=== PATIENT | male | born 1955 | race Caucasian/White ===

== ENCOUNTER 2017-11-04 12:47 | Inpatient (IN) ==
[2017-11-04 13:37] LABS: Bilirubin,Urine Negative (Negative); Blood,Urine Negative (Negative); Clarity,Urine Clear (Clear); Color,Urine Yellow (Yellow); Glucose,Urine (UA) Normal (Normal); Ketones,Urine Negative (Negative); Leukocyte Esterase,Urine Trace (Negative); Nitrite,Urine Negative (Negative); Protein,Urine Trace mg/dL (Neg-Trace); Specific Gravity,Urine 1.013 (1.010-1.025); Urobilinogen,Urine Normal (Normal)
[2017-11-04 13:40] LABS: Bacteria,Urine None Seen per hpf (None-Few); Hyaline Casts,Urine None Seen per lpf (None-Few); RBC,Urine 0-3 per hpf (0-3); Squamous Epithelial Cell,Urine Moderate per lpf (None-Few)
[2017-11-04 14:30] LABS: Basophils % 0.2 %; Eosinophils % 0.6 %; Hematocrit 28.8 % (37.5-50.1); Hemoglobin 9.3 g/dL (12.9-16.9); Lymphocytes # 0.6 K/mcL (0.6-4.6); Lymphocytes % 8.9 %; Mean Corpuscular HGB Conc 32.3 g/dL (31.6-35.5); Mean Corpuscular Volume 83.5 fL (83.0-100.0); Mean Platelet Volume 8.9 fL (9.4-12.4); Monocytes # 0.3 K/mcL (0.0-1.3); Monocytes % 5.1 %; Neutrophils # 5.3 K/mcL (1.6-8.9); Platelet Count 269 K/mcL (140-400); Red Blood Count 3.45 M/mcL (4.19-5.50); Red Cell Distribution Width 13.4 % (11.5-14.5); Segmented Neutrophils % 84.2 %
--- NOTE | 2017-11-04 14:38 | Emergency Department Note ---
Disposition Clinical Impression: Acute kidney injury, Hyperglycemia Disposition: Admitted As Inpatient Condition: Good [facility]errals: [facility] [Primary Care Provider[facility] - Forms: ED Satisfaction Letter, Work/School Release General Adult HPI - General Chief complaint: ED General Medical Stated complaint: KIDNEY FAILURE Time Seen by Provider: 11/04/17 14:09 Source: patient Mode of arrival: private vehicle Limitations: no limitations Nursing Notes Reviewed: Yes Vital Signs Reviewed: Yes - History of Present Illness HPI Narrative: 62-year-old male presents to the ER with a chief complaint of renal failure. The patient states that he had routine labs 2 days ago at the [facility]. He was called from normal results and went today to see a sanitation truck driver here. He states he was sent from Dr. Barraza's office for admission for kidney failure. He denies a prior history of kidney issues in the past. No chest pain shortness of breath or abdominal pain. No dysuria or hematuria. 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 Patient has no other complaints at this time. Pt Subjective Complaint: Kidney failure Onset (ago): day(s) Radiation: non-radiation Pain Scale: 0 Improves with: nothing Worsens with: nothing Associated symptoms: Reports: denies other symptoms Treatments Prior to Arrival: none - Related Data Home Medications Medication Instructions Recorded Confirmed Cilostazol 50 mg PO BID 01/18/17 01/18/17 Clopidogrel [Plavix] 75 mg PO DAILY 01/18/17 01/18/17 Gabapentin [Neurontin] 300 mg PO TID 01/18/17 01/18/17 Metoprolol [Lopressor] 25 mg PO BID 01/18/17 01/18/17 Simvastatin [Zocor] 40 mg PO HS 01/18/17 01/18/17 Tamsulosin [Flomax] 0.4 mg PO DAILY 01/18/17 01/18/17 Previous Rx's Medication Instructions Recorded HYDROcodone/Acet 5/325 mg [[place] 2 tab PO Q4H PRN #16 tablet 01/18/17 5-325 mg] cephALEXin [Keflex] 500 mg PO BID #14 capsule 01/18/17 Allergies Allergy/AdvReac Type Severity Reaction Status Date / Time metformin AdvReac Diarrhea Verified 11/04/17 13:14 All systems ED: reviewed and negative except as stated. Constitutional: Denies: fever Cardiovascular: Denies: chest pain Respiratory: Denies: dyspnea Gastrointestinal: Denies: abdominal pain, nausea, vomiting Genitourinary: Denies: dysuria, hematuria Past Medical History - Past Medical History Attestation: Yes The following information was validated with the patient. Source: patient Medical history: Reports: CVA, diabetes, hypertension, myocardial infarction, renal disease Psychiatric history: Reports: no psych history - Social History Smoking Status: Former smoker Smokeless Tobacco Status: No Alcohol use: Reports: none Drug use: Reports: none Physical Exam - General Limitations: no limitations General appearance: alert, in no apparent distress - Head Head exam: atraumatic, normocephalic - Eye Eye exam: Present: normal appearance - ENT ENT exam: normal exam - Neck Neck exam: Present: normal inspection, full ROM - Chest Chest inspection: Present: normal inspection, symmetric chest wall rise - Respiratory Respiratory exam: Present: normal lung sounds bilaterally - Cardiovascular Cardiovascular exam: Present: regular rate, normal rhythm, normal heart sounds - Abdominal Exam Abdominal exam: Present: soft, Non-Tender. Absent: tenderness - Extremities Exam Extremities exam: Present: normal inspection, full ROM - Expanded Upper Extremity Exam Shoulder exam: Present: normal inspection, full ROM Arm exam: Present: normal inspection, full ROM Elbow exam: Present: normal inspection, full ROM Forearm/Wrist exam: Present: normal inspection, full ROM Hand exam: Present: normal inspection, full ROM - Expanded Lower Extremity Exam Hip/Pelvis exam: Present: normal inspection, full ROM Upper leg exam: Present: normal inspection, full ROM Knee exam: Present: normal inspection, full ROM Lower leg exam: Present: normal inspection, full ROM Ankle exam: Present: normal inspection, full ROM Foot/toe exam: Present: normal inspection, full ROM - Skin Skin exam: Present: warm, dry Course Course Narrative: Patient seen and examined. Vital signs reviewed. We will check baseline labs and it made for IV hydration. Vital Signs Temperature 98.5 F 11/04/17 13:10 Pulse Rate 86 11/04/17 13:10 Respiratory Rate 16 11/04/17 13:10 Blood Pressure 123/71 11/04/17 13:10 O2 Sat by Pulse Oximetry 98 11/04/17 13:10 Temperature 98.5 F 11/04/17 13:10 Pulse Rate 86 11/04/17 13:10 Respiratory Rate 16 11/04/17 13:10 Blood Pressure 123/71 11/04/17 13:10 O2 Sat by Pulse Oximetry 98 11/04/17 13:10 Oxygen Delivery Oxygen Delivery Room Air Medical Decision Making - MDM Narrative Medical decision making narrative: 62-year-old male presents to the ER due to lab abnormalities. Noted to have an acute kidney injury 2 days ago on incidental labs. Feosol nephrology today who sent him in for evaluation. Creatinine today of 2.9. Electrolytes normal. Patient given IV fluids. Admitted to the hospitalist service. - Lab Data Lab results reviewed: Yes I reviewed the patient's lab results. Result diagrams: 11/04/17 14:15 11/04/17 14:15 Lab Results 11/04/17 11/04/17 11/04/17 Range/Units 13:30 14:15 14:15 WBC 6.3 (4.3-11.1) K/mcL RBC 3.45 L (4.19-5.50) M/mcL Hgb 9.3 L (12.9-16.9) g/dL Hct 28.8 L (37.5-50.1) % MCV 83.5 (83.0-100.0) fL MCH 27.0 L (28.0-33.3) pg MCHC 32.3 (31.6-35.5) g/dL RDW 13.4 (11.5-14.5) % Plt Count 269 (140-400) K/mcL MPV 8.9 L (9.4-12.4) fL Immature Gran % 1.0 (0-4) % Seg Neutrophils % 84.2 % Lymphocytes % 8.9 % Monocytes % 5.1 % Eosinophils % 0.6 % Basophils % 0.2 % Neutrophils # 5.3 (1.6-8.9) K/mcL Lymphocytes # 0.6 (0.6-4.6) K/mcL Monocytes # 0.3 (0.0-1.3) K/mcL Eosinophils # 0.0 (0.0-0.6) K/mcL Basophils # 0.0 (0.0-0.2) K/mcL Sodium 140 (136-145) mEq/L Potassium 4.4 (3.5-5.1) mEq/L Chloride 107 (98-107) mEq/L Carbon Dioxide 25 (23-29) mEq/L BUN 40 H (8-23) mg/dL Creatinine 2.93 H (0.70-1.30) mg/dL Est GFR ( Amer) 26 L (> 60) Est GFR (Non-Af Amer) 22 L (> 60) BUN/Creatinine Ratio 14 (6-26) Glucose 206 H (70-105) mg/dL Calculated Osmolality 306 H (280-300) Calcium 9.5 (8.6-10.3) mg/dL Phosphorus (2.7-4.5) mg/dL Magnesium (1.6-2.6) mg/dL Urine Color Yellow (Yellow) Urine Clarity Clear (Clear) Urine pH 6.0 (5.0-8.0) pH Units Ur Specific [place] 1.013 (1.010-1.025) Urine Protein Trace (Neg-Trace) mg/dL Urine Glucose (UA) Normal (Normal) mg/dL Urine Ketones Negative (Negative) mg/dL Urine Blood Negative (Negative) Urine Nitrite Negative (Negative) Urine Bilirubin Negative (Negative) Urine Urobilinogen Normal (Normal) mg/dL Ur Leukocyte Esterase Trace H (Negative) Urine Microscopic RBC 0-3 (0-3) per hpf Urine Microscopic WBC 3-5 H (0-3) per hpf Ur Squamous Epith Cells Moderate H (None-Few) per lpf Urine Bacteria None Seen (None-Few) per hpf Hyaline Casts None Seen (None-Few) per lpf Ur Culture Indicated? YES A (NO) 11/04/17 Range/Units 14:17 WBC (4.3-11.1) K/mcL RBC (4.19-5.50) M/mcL Hgb (12.9-16.9) g/dL Hct (37.5-50.1) % MCV (83.0-100.0) fL MCH (28.0-33.3) pg MCHC (31.6-35.5) g/dL RDW (11.5-14.5) % Plt Count (140-400) K/mcL MPV (9.4-12.4) fL Immature Gran % (0-4) % Seg Neutrophils % % Lymphocytes % % Monocytes % % Eosinophils % % Basophils % % Neutrophils # (1.6-8.9) K/mcL Lymphocytes # (0.6-4.6) K/mcL Monocytes # (0.0-1.3) K/mcL Eosinophils # (0.0-0.6) K/mcL Basophils # (0.0-0.2) K/mcL Sodium (136-145) mEq/L Potassium (3.5-5.1) mEq/L Chloride (98-107) mEq/L Carbon Dioxide (23-29) mEq/L BUN (8-23) mg/dL Creatinine (0.70-1.30) mg/dL Est GFR ( Amer) (> 60) Est GFR (Non-Af Amer) (> 60) BUN/Creatinine Ratio (6-26) Glucose (70-105) mg/dL Calculated Osmolality (280-300) Calcium (8.6-10.3) mg/dL Phosphorus 2.9 (2.7-4.5) mg/dL Magnesium 1.6 (1.6-2.6) mg/dL Urine Color (Yellow) Urine Clarity (Clear) Urine pH (5.0-8.0) pH Units Ur Specific [place] (1.010-1.025) Urine Protein (Neg-Trace) mg/dL Urine Glucose (UA) (Normal) mg/dL Urine Ketones (Negative) mg/dL Urine Blood (Negative) Urine Nitrite (Negative) Urine Bilirubin (Negative) Urine Urobilinogen (Normal) mg/dL Ur Leukocyte Esterase (Negative) Urine Microscopic RBC (0-3) per hpf Urine Microscopic WBC (0-3) per hpf Ur Squamous Epith Cells (None-Few) per lpf Urine Bacteria (None-Few) per hpf Hyaline Casts (None-Few) per lpf Ur Culture Indicated? (NO) S.B.A.R. - S.B.A.R. Situation: Demographics, MOA Background: Presenting Complaint, Relevant PMH, Meds, & Allergies Assessment: Course and respsone to treatment, Exam Concerns, Patient/Family Expectation, Pertinant Lab Results Recommendation: Barrier(s) to disposition, Recommendation based on pending studies, treatments, or consults S.B.A.R. Report Given to: Monty Ryan Attestation Statement - Attestation Attestation: I examined this patient and my medical decision-making was reviewed with the Resident Physician, Dr. Solano. I agree with the documented findings, disposition and treatment plan as described except to the extent set forth below. He is a 62-year-old white male diabetic who presents to the emergency department sent by Dr. Barraza from her office for admission for new onset kidney failure. Patient was sent to her office for abnormal labs by the primary care physician. After Dr. Barraza evaluated the patient in her office today he sent her to the ED for lab evaluation and admission. Pt with no complaints. I agree with patient's physical exam findings as documented. Patient's labs show elevated serum creatinine which is new for the patient with no evidence of hyperkalemia. Patient will be admitted for further evaluation and management case was discussed with the hospitalist to except the patient for further admission.
[2017-11-04 14:39] LABS: Magnesium 1.6 mg/dL (1.6-2.6); Phosphorous 2.9 mg/dL (2.7-4.5)
[2017-11-04 14:40] LABS: Calcium 9.5 mg/dL (8.6-10.3); Potassium 4.4 mEq/L (3.5-5.1)
[2017-11-04] MEDS ORDERED: 0.9 % Sodium Chloride 1,000 ML IVC ONE (14:53)
--- NOTE | 2017-11-04 16:41 | Internal Med History&Physical ---
Date of Encounter: 11/04/17 Time of Encounter: 16:40 Assessment and Plan (1) Acute renal failure (ARF) Current visit: Yes Status: Acute 1.Consult nephrology (sent by nephrology to ER so not called but consult ordered ) 2.Hold all nephrotxic agents 3.3.7 liters of IVF given in ED. 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 Hold his herbal remedy 2. Start flomax 3. Start finasteride Qualifiers: Lower urinary tract symptom detail: urinary retention Qualified Code(s): N40.1 - Benign prostatic hyperplasia with lower urinary tract symptoms; R33.8 - Other retention of urine; R33.8 - Other retention of urine (4) PAD (peripheral artery disease) Current visit: Yes Status: Chronic S/p AKA (lt) Continue Plavix, statin and Cilostazol Code(s): I73.9 - Peripheral vascular disease, unspecified Internal Medicine - H&P: HPI Admitted From: Emergency Dept Plans for Post Hospital Care: Home History of present illness: 62-year-old man recently found to be in ARF at [facility] and sent for w/u at Nephrology office. He was sent to ER by nephrology presents to the ER with a chief complaint of renal failure. The patient states that he had routine labs 2 days ago at the [facility]. He was called from normal results and went today to see a design consultant here. He states he was sent from Dr. Barraza's office for admission for kidney failure. He denies a prior history of kidney issues in the past. No chest pain shortness of breath or abdominal pain. No dysuria or hematuria. 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 Patient has no other complaints at this time. Past Med Surg Social Fam HX - Past Medical History Medical history: CVA, diabetes, hypertension, myocardial infarction, renal disease Psychiatric history: no psych history - Social History Smoking Status: Former smoker Smokeless Tobacco Status: No Alcohol use: none Drug use: none Internal Medicine - H&P: Meds Cilostazol 100 mg PO BID 01/18/17 [History] Clopidogrel [Plavix] 75 mg PO DAILY 01/18/17 [History] Metoprolol [Lopressor] 25 mg PO BID 01/18/17 [History] Simvastatin [Zocor] 40 mg PO HS 01/18/17 [History] Budesonide [Entocort EC] 9 mg PO DAILY 11/04/17 [History] Dextrose [Glucose] 16 gm PO AD PRN 11/04/17 [History] Gabapentin [Neurontin] 600 mg PO QID 11/04/17 [History] Glucocil 2 cap PO BIDWM 11/04/17 [History] Loperamide HCl [Anti-Diarrheal] 2 mg PO PER PKG DI PRN 11/04/17 [History] Potassium Chloride Elixir [Potassium Chloride] 20 meq PO DAILY 11/04/17 [History ] glipiZIDE [Glucotrol] 5 mg PO 0800 11/04/17 [History] 3 Allergy/AdvReac Type Severity Reaction Status Date / Time metformin AdvReac Diarrhea Verified 11/04/17 13:14 All Systems PM: A 10-system review of systems was performed and is negative for pertinent findings except as documented above in the HPI. - Constitutional Constitutional: anorexia, fatigue, lethargy - EENT Eyes: no blurry vision, no diplopia, no itchy eyes, no pain Ears: no ear pain, no tinnitus Nose, mouth and throat: no epistaxis - Respiratory Respiratory: no cough, no hemoptysis, no wheezing, no stridor, no chest congestion - Gastrointestinal Gastrointestinal: diarrhea, loose stools, no abdominal pain, no coffee ground emesis, no melena - Genitourinary Genitourinary ROS male: difficulty urinating - Musculoskeletal Musculoskeletal ROS IM: muscle weakness - Integumentary Integumentary IM: no pruritus, no rash, no sores - Neurological Neurological ROS: weakness - Psychiatric Psychiatric: no anxiety, no confusion, no hallucinations, no homicidal ideation , no suicidal ideation - Endocrine Endocrine IM: no flushing, no polyphagia, no polyuria - Constitutional Vitals: Temp Pulse Resp BP Pulse Ox 98.5 F 86 16 123/71 98 11/04/17 13:10 11/04/17 13:10 11/04/17 13:10 11/04/17 13:10 11/04/17 13:10 General appearance: Present: mild distress, A&O X 3 - Head Head exam: Present: atraumatic, normocephalic - Eye Eye exam: Present: EOMI, PERRL, conjuntiva pink, sclera anicteric. Absent: periorbital swelling, scleral icterus Pupils: Present: PERRL - Neck Neck exam general surgery: Present: supple, trachea midline. Absent: lymphadenopathy - Respiratory Respiratory exam: Present: CTAB. Absent: accessory muscle use, rales, respiratory distress, rhonchi, stridor, wheezes - Cardiovascular Cardiovascular exam: Present: RRR, +S1, +S2. Absent: diastolic murmur, gallop, rubs, systolic murmur - GI/Abdominal GI/Abdominal exam: Present: normal bowel sounds, soft, no peritoneal signs. Absent: distended, guarding, hepatomegaly, tenderness - Extremities Exam Extremities exam: Present: warm, radial pulses palpable and symmetrical. Absent : calf tenderness, cyanotic, pedal edema - Neurological Exam Neurological exam: Present: CN II-XII intact, oriented X3, no focal deficits. Absent: pronater drift, facial droop, speech deficit - Skin Skin exam: Present: dry, intact, warm Internal Med - H&P Results - Labs CBC & Chem 7: 11/04/17 14:15 11/04/17 14:15
[2017-11-04] MEDS ORDERED: Dextrose Gel 15 GM/37.5 ML TUBE PO PRN ×3 (16:49→16:52)
[2017-11-04] MEDS ORDERED: *HR* Dextrose 50 % in Water (Syg) 50 ML SYRINGE IVP PRN (16:52)
[2017-11-04] MEDS ORDERED: D5% in Water 1,000 ML IVC PRN (16:52)
[2017-11-04] MEDS: 0.9 % Sodium Chloride 1,000 ML IVC SCH (17:49)
[2017-11-04] MEDS: Gabapentin 300 MG CAPSULE PO SCH ×3 (17:53→20:43)
[2017-11-04 18:13] LABS: Hemoglobin A1C 6.8 %
[2017-11-05] MEDS: 0.9 % Sodium Chloride 1,000 ML IVC SCH ×3 (03:30→23:22)
[2017-11-05] MEDS: Insulin LISPRO 300 UNITS/3 ML VIAL SQ SCH ×4 (08:02→21:46)
[2017-11-05] MEDS: Gabapentin 300 MG CAPSULE PO SCH (08:04)
[2017-11-05 09:29] LABS: Basophils % 0.2 %; Eosinophils # 0.1 K/mcL (0.0-0.6); Eosinophils % 1.8 %; Hematocrit 25.3 % (37.5-50.1); Hemoglobin 8.1 g/dL (12.9-16.9); Immature Granulocytes % 0.8 % (0-4); Lymphocytes # 0.8 K/mcL (0.6-4.6); Lymphocytes % 15.2 %; Mean Corpuscular Hemoglobin 26.6 pg (28.0-33.3); Mean Corpuscular Volume 83.2 fL (83.0-100.0); Mean Platelet Volume 9.1 fL (9.4-12.4); Monocytes # 0.3 K/mcL (0.0-1.3); Monocytes % 5.5 %; Neutrophils # 3.8 K/mcL (1.6-8.9); Platelet Count 242 K/mcL (140-400); Red Blood Count 3.04 M/mcL (4.19-5.50); Red Cell Distribution Width 13.5 % (11.5-14.5); Segmented Neutrophils % 76.5 %
[2017-11-05 09:42] LABS: Calcium 8.6 mg/dL (8.6-10.3); Magnesium 1.6 mg/dL (1.6-2.6); Phosphorous 2.4 mg/dL (2.7-4.5); Potassium 3.7 mEq/L (3.5-5.1)
--- NOTE | 2017-11-05 09:51 | Nephrology Consult Note ---
Date of Encounter: 11/05/17 Time of Encounter: 09:51 Assessment and Plan (1) Acute kidney injury Current Visit: Yes Status: Acute Patient with routine labs on 11/02/17 at the [facility] revealing SrCr 3.27. Baseline GFR was >60 in December 2016 Likely pre-renal MCKENNA. Patient reports chronic diarrhea secondary to Metformin use that resolved a few days ago since stopping Metformin. Patient reports previously taking Gabapentin 600mg QID but has now been decreased to 200mg QID. Recommend renally dosing Gabapentin Unremarkable ultrasound of the kidneys with no evidence of hydronephrosis. UA revealed no proteinuria. Additional labs pending: BMP, Urine sodium, urine creatinine, urine protein: creatinine ratio, urine eosinophils, UPEP, SPEP, BONI, ANCA, rheumatoid factor, and uric acid level Continue NS at 100cc/hr Avoid nephrotoxins Continue to monitor, possible d/c tomorrow if renal function improved (2) Diabetes mellitus Current Visit: Yes Status: Chronic Management per primary team Qualifiers: Diabetes mellitus type: type 2 Diabetes mellitus complication status: with neurologic complications Diabetes mellitus complication detail: with unspecified neuropathy Diabetes mellitus correction insulin use: without correction use Qualified Code(s): E11.40 - Type 2 diabetes mellitus with diabetic neuropathy, unspecified (3) PAD (peripheral artery disease) Current Visit: Yes Status: Chronic Management per primary team History of Present Illness - Reason for Consult Consult date: 11/04/17 Acute Kidney Injury Requesting physician: Monty Ryan - Chief Complaint Sent by [employer] - History of Present Illness Mr. Martinez is a 62-year-old patient from the [place] with a PMH of CVA, vasculopathy with an AKA of the left leg, diabetes, and hypertension who was sent to the hospital from [facility] T[facility] Dr. Pop's office due to acute renal failure. Of note, his GFR was >60 in December 2016 and patient had routine labs on 11/02/17 at the [facility] revealing SrCr 3.27. He reports chronic diarrhea secondary to Metformin use that resolved a few days ago since stopping Metformin. Patient reports previously taking Gabapentin 600mg QID but has now been decreased to 200mg QID. Associated symptoms include weakness, fatigue, and chills. He denies fever, CP, SOB, abd pain, N/V/D, dysuria, or hematuria. Work up thus far revealed unremarkable ultrasound of the kidneys with no evidence of hydronephrosis. UA revealed no proteinuria. Patient was stated on NS at 100cc/ hr and reports no other c/o at this time. Past Med Surg Social Fam HX - Past Medical History Medical history: CVA, diabetes, hypertension, myocardial infarction, renal disease Psychiatric history: no psych history - Past Surgical History Surgical History: other (Left AKA) - Social History Smoking Status: Former smoker Smokeless Tobacco Status: No Alcohol use: none Drug use: none - Family History Mother Hx Family Endocrine Disorder: Yes (DM) Medications and Allergies Cilostazol 100 mg PO BID 01/18/17 [History] Clopidogrel [Plavix] 75 mg PO DAILY 01/18/17 [History] Metoprolol [Lopressor] 25 mg PO BID 01/18/17 [History] Simvastatin [Zocor] 40 mg PO HS 01/18/17 [History] Budesonide [Entocort EC] 9 mg PO DAILY 11/04/17 [History] Dextrose [Glucose] 16 gm PO AD PRN 11/04/17 [History] Gabapentin [Neurontin] 600 mg PO QID 11/04/17 [History] Glucocil 2 cap PO BIDWM 11/04/17 [History] Loperamide HCl [Anti-Diarrheal] 2 mg PO PER PKG DI PRN 11/04/17 [History] Potassium Chloride Elixir [Potassium Chloride] 20 meq PO DAILY 11/04/17 [History ] glipiZIDE [Glucotrol] 5 mg PO 0800 11/04/17 [History] 3 Allergy/AdvReac Type Severity Reaction Status Date / Time metformin AdvReac Diarrhea Verified 11/04/17 13:14 Review of Systems Constitutional: chills, fatigue, weakness, no fever(s) Nose, mouth and throat: no nasal congestion, no sore throat Cardiovascular: no chest pain, no dyspnea, no palpitations Respiratory: no cough, no dyspnea, no chest congestion Gastrointestinal: diarrhea (resolved), no abdominal pain, no bloating, no constipation, no nausea, no vomiting Genitourinary Male: no dysuria, no flank pain, no urinary frequency, no urinary urgency Musculoskeletal: radiating pain into limb (left AKA pain, chronic), no numbness , no tingling Integumentary: no lesions, no skin ulcer Neurological: abnormal gait, radicular pain, weakness, no confusion, no numbness , no syncope, no tingling Psychiatric: no anxiety, no depression Endocrine: fatigue, no palpitations Exam - Vital Signs Vital signs: Initial Vital Signs Temp Pulse Resp BP Pulse Ox 98.5 F 86 16 123/71 98 11/04/17 13:10 11/04/17 13:10 11/04/17 13:10 11/04/17 13:10 11/04/17 13:10 Vital Signs - Last 8 Hours Temp Pulse Resp BP Pulse Ox 11/05/17 07:21 98.3 F 73 16 150/72 97 11/05/17 04:37 97.8 F 73 16 121/71 97 Intake and Output 11/04/17 11/05/17 11/05/17 23:59 07:59 15:59 Intake Total 1000 / 1000 360 / 360 Output Total 400 / 400 775 / 775 Balance -400 / -400 225 / 225 360 / 360 Intake: IV Fluids 1000 / 1000 0.9 % Sodium Chloride 1,000 ML 1000 / 1000 @ 100 mls/hr IVC .Q10H PERI Rx#: [id number] Oral 360 / 360 Output: Urine 400 / 400 775 / 775 Other: Meal Breakfast Percent of Meal Consumed 100% # Voids 2 Weight 48.988 kg 48.9 kg Blood Glucose* 218 97 Patient Weight 11/05/17 23:59 Weight 48.9 kg - General Appearance General appearance: well-developed, well-nourished, appears started age EENT: ATNC, mucous membranes dry Neck: no carotid bruit, supple Respiratory: no scoliosis, clear Cardiology: no murmurs, no rub, no gallops, no edema, regular rate, regular rhythm Gastrointestinal: normoactive bowel sounds, no tenderness, no guarding Integumentary: no rash, warm and dry (increased skin turgor) Neurologic: no focal deficit, alert and oriented x3 Musculoskeletal: deformities (Left AKA), no erythema, no cyanosis Psychiatric: mood/affect appropriate, cooperative Results - Lab Results 11/05/17 09:07 11/05/17 09:07 Most recent lab results Calcium 8.6 mg/dL (8.6-10.3) 11/05/17 09:07 Phosphorus 2.4 mg/dL (2.7-4.5) L 11/05/17 09:07 Magnesium 1.6 mg/dL (1.6-2.6) 11/05/17 09:07 - Image Kidney/bladder ultrasound: report reviewed Consult Discharge Plan - Plan Referrals: [facility] [Primary Care Provider] - (Possible Placement)
[2017-11-05] MEDS: BUDESONIDE 9 MG PO SCH (10:05)
[2017-11-05] MEDS: [UNRECOGNIZED DRUG - OTHER] PO SCH ×2 (10:05→20:58)
[2017-11-05] MEDS: GLUCOCIL PO SCH ×2 (12:39→16:12)
[2017-11-05] MEDS: Gabapentin 100 MG CAPSULE PO SCH ×3 (12:39→20:57)
--- NOTE | 2017-11-05 13:29 | Internal Med Progress Note ---
Date of Encounter: 11/05/17 Time of Encounter: 13:27 - Assessment and plan (1) Acute kidney injury Current Visit: Yes Status: Acute Assessment and plan: Renal function improved from previous day continue IV fluids nephrology evaluation appreciated continue to avoid nephrotoxins continue to closely monitor renal function (2) BPH (benign prostatic hyperplasia) Current Visit: Yes Status: Chronic Qualifiers: Lower urinary tract symptom detail: urinary retention Qualified Code(s): N40.1 - Benign prostatic hyperplasia with lower urinary tract symptoms; R33.8 - Other retention of urine; R33.8 - Other retention of urine (3) Diabetes mellitus Current Visit: Yes Status: Chronic Assessment and plan: sliding scale insulin algorithm monitor FS and BG ADA diet Qualifiers: Diabetes mellitus type: type 2 Diabetes mellitus complication status: with neurologic complications Diabetes mellitus complication detail: with unspecified neuropathy Diabetes mellitus assistant terminal manager insulin use: without residential use Qualified Code(s): E11.40 - Type 2 diabetes mellitus with diabetic neuropathy, unspecified (4) PAD (peripheral artery disease) Current Visit: Yes Status: Chronic Assessment and plan: continue home meds (5) DVT prophylaxis Current Visit: Yes Status: Acute Assessment and plan: Heparin SQ - Subjective Interval history: Pt seen and examined at bedside. Resting in bed and denies any discomfort. Renal function mildly improved from previous day reports of resolution of diarrhea. - Constitutional Vitals: Temp Pulse Resp BP Pulse Ox 97.9 F 77 14 135/79 99 11/05/17 10:58 11/05/17 10:58 11/05/17 10:58 11/05/17 10:58 11/05/17 10:58 General appearance: Present: A&O X 3, no acute distress - Head Head exam: Present: atraumatic, normocephalic - Eye Eye exam: Present: conjuntiva pink, sclera anicteric - Respiratory Respiratory exam: Present: CTAB. Absent: respiratory distress, wheezes - Cardiovascular Cardiovascular exam: Present: RRR, +S1, +S2. Absent: diastolic murmur, gallop, rubs, systolic murmur - GI/Abdominal GI/Abdominal exam: Present: normal bowel sounds, soft, no peritoneal signs. Absent: distended, tenderness - Extremities Exam Extremities exam: Present: warm, radial pulses palpable and symmetrical. Absent : calf tenderness (s/p left AKA ), pedal edema - Neurological Exam Neurological exam: Present: alert, oriented X3 - Psychiatric Psychiatric exam: Present: normal affect, normal mood Internal Medicine: Result - Labs CBC & Chem 7: 11/05/17 09:07 11/05/17 09:07 Labs: Short CBC 11/05/17 Range/Units 09:07 WBC 4.9 (4.3-11.1) K/mcL Hgb 8.1 L (12.9-16.9) g/dL Hct 25.3 L (37.5-50.1) % Plt Count 242 (140-400) K/mcL Neutrophils # 3.8 (1.6-8.9) K/mcL BMP 11/05/17 09:07 Sodium 143 Potassium 3.7 Chloride 112 H Carbon Dioxide 24 BUN 34 H Creatinine 2.72 H Glucose 137 H Calcium 8.6 - Impressions Impressions Retroperitoneum Ultrasound 11/04/17 17:53 IMPRESSION: Unremarkable ultrasound of the kidneys. No evidence of hydronephrosis. D/ / Elgin Sun MD / Elgin Sun MD Interpreting Provider: Elgin Sun MD Consult Discharge Plan - Plan [facility]: [facility] [Primary Care Provider] - (Possible Placement)
[2017-11-05] MEDS: *HR* Heparin 5,000 UNIT/ML VIAL SQ SCH (17:03)
[2017-11-05 17:51] LABS: Calcium 8.7 mg/dL (8.6-10.3); Potassium 4.3 mEq/L (3.5-5.1); Uric Acid 6.7 mg/dL (2.3-7.6)
[2017-11-06] MEDS: *HR* Heparin 5,000 UNIT/ML VIAL SQ SCH ×2 (06:24→17:01)
[2017-11-06 06:43] LABS: Basophils % 0.4 %; Eosinophils # 0.2 K/mcL (0.0-0.6); Eosinophils % 2.9 %; Hematocrit 26.9 % (37.5-50.1); Hemoglobin 8.7 g/dL (12.9-16.9); Immature Granulocytes % 0.6 % (0-4); Lymphocytes # 0.9 K/mcL (0.6-4.6); Mean Corpuscular HGB Conc 32.3 g/dL (31.6-35.5); Mean Corpuscular Hemoglobin 26.9 pg (28.0-33.3); Mean Platelet Volume 9.3 fL (9.4-12.4); Monocytes # 0.4 K/mcL (0.0-1.3); Monocytes % 7.3 %; Neutrophils # 3.8 K/mcL (1.6-8.9); Platelet Count 266 K/mcL (140-400); Red Blood Count 3.24 M/mcL (4.19-5.50); Red Cell Distribution Width 13.6 % (11.5-14.5); Segmented Neutrophils % 71.8 %
[2017-11-06 06:48] LABS: Calcium 8.9 mg/dL (8.6-10.3); Magnesium 1.4 mg/dL (1.6-2.6); Phosphorous 2.8 mg/dL (2.7-4.5); Potassium 3.8 mEq/L (3.5-5.1)
[2017-11-06] MEDS: [UNRECOGNIZED DRUG - OTHER] PO SCH ×2 (08:47→21:16)
[2017-11-06] MEDS: Gabapentin 100 MG CAPSULE PO SCH ×4 (08:47→21:15)
[2017-11-06] MEDS: GLUCOCIL PO SCH ×2 (08:47→16:58)
[2017-11-06] MEDS: Insulin LISPRO 300 UNITS/3 ML VIAL SQ SCH ×3 (08:48→17:00)
[2017-11-06] MEDS: BUDESONIDE 9 MG PO SCH (08:49)
--- NOTE | 2017-11-06 10:11 | Nephrology Progress Note ---
Date of Encounter: 11/06/17 Time of Encounter: 09:30 - Assessment and Plan (1) Acute kidney injury Current Visit: Yes Status: Acute Nonoliguric MCKENNA and relatively stable. Serologies were drawn and are pending. I had a long discussion with him regarding renal care and the safety of continuing to monitor his renal function. Thus far (without the serologies), his UA was bland so I tend to doubt a GN, but the DDx includes ATN from severe diarrhea, renovascular with his hx of PVD ( but there was on renal asymmetry as would be expected with MAGDALENO for example) vs other Discussed with the floor RN that the pt most likely would be willing to remain and I would recommend he have his IV replaced (per report he took out his IV) and to resume IVF as well as replete Mg. Continue to follow a renal protective strategy Will follow with you. Thank you. (2) BPH (benign prostatic hyperplasia) Current Visit: Yes Status: Chronic Nonoliguric and no hydro noted on renal U/S Qualifiers: Lower urinary tract symptom detail: urinary retention Qualified Code(s): N40.1 - Benign prostatic hyperplasia with lower urinary tract symptoms; R33.8 - Other retention of urine; R33.8 - Other retention of urine (3) PAD (peripheral artery disease) Current Visit: Yes Status: Chronic (4) Hypomagnesemia Current Visit: Yes Status: Acute Recommend repletion. (5) Anemia Current Visit: Yes Status: Acute With +occult blood in the stool. May need GI work up. Checking Iron studies and Ferritin. Qualifiers: Anemia type: unspecified type Qualified Code(s): D64.9 - Anemia, unspecified Subjective Principal diagnosis: MCKENNA Interval history: Pt was seen/examined. He did not affirm N/V/D. His family member was present. After a long discussion, he agreed to be willing to stay another day d/t his poor renal function. He voiced having a good appetite. Objective - Vital Signs Vital signs: Vital Signs Temp Pulse Resp BP Pulse Ox 11/06/17 07:58 98.6 F 119 18 157/71 96 11/06/17 04:23 98.1 F 102 16 133/72 95 11/05/17 23:32 98.6 F 86 18 152/70 96 11/05/17 19:20 98.0 F 102 19 153/79 95 11/05/17 15:44 98.5 F 93 17 163/83 95 11/05/17 10:58 97.9 F 77 14 135/79 99 Intake and Output 11/05/17 11/06/17 11/06/17 23:59 07:59 15:59 Intake Total 1120 / 1120 0 / 0 Output Total 800 / 800 790 / 790 100 / 100 Balance 320 / 320 -790 / -790 -100 / -100 Intake: IV Fluids 1000 / 1000 0.9 % Sodium Chloride 1,000 ML 1000 / 1000 @ 100 mls/hr IVC .Q10H PERI Rx#: [id number] Oral 120 / 120 0 / 0 Output: Urine 800 / 800 790 / 790 100 / 100 Other: Meal Dinner Percent of Meal Consumed 95% # Voids 1 Weight 50.065 kg Blood Glucose* 195 112 Patient Weight 11/06/17 23:59 Weight 50.065 kg - General Appearance General appearance: Present: well-developed, cachectic EENT: Present: ATNC, PERRL, mucous membranes moist Neck: Present: supple Respiratory: Present: clear Cardiology: Present: no edema, regular rate, regular rhythm, normal S1, normal S2 Gastrointestinal: Present: normoactive bowel sounds, no tenderness, no guarding Integumentary: Present: warm and dry Neurologic: Present: no focal deficit, no asterixis Musculoskeletal: Present: no cyanosis, no clubbing Additional Comments: Left AKA Psychiatric: Present: mood/affect appropriate, cooperative - Lab 11/06/17 05:26 11/06/17 05:26 Most recent lab results Calcium 8.9 mg/dL (8.6-10.3) 11/06/17 05:26 Phosphorus 2.8 mg/dL (2.7-4.5) 11/06/17 05:26 Magnesium 1.4 mg/dL (1.6-2.6) L 11/06/17 05:26 - Imaging Kidney/bladder ultrasound: report reviewed (no hydronephrosis and relatively symmetrical kidneys) Consult Discharge Plan - Plan [facility]errals: [facility] [Primary Care Provider] - (Possible Placement)
--- NOTE | 2017-11-06 14:43 | Internal Med Progress Note ---
Date of Encounter: 11/06/17 Time of Encounter: 14:05 - Assessment and plan (1) Acute kidney injury Current Visit: Yes Status: Acute Assessment and plan: Renal function worsened from previous day as pt did not allow IV fluids since yesterday evening Currently in agreement and willing to be compliant with the treatment plan continue IV fluids nephrology evaluation appreciated continue to avoid nephrotoxins continue to closely monitor renal function (2) BPH (benign prostatic hyperplasia) Current Visit: Yes Status: Chronic Qualifiers: Lower urinary tract symptom detail: urinary retention Qualified Code(s): N40.1 - Benign prostatic hyperplasia with lower urinary tract symptoms; R33.8 - Other retention of urine; R33.8 - Other retention of urine (3) Diabetes mellitus Current Visit: Yes Status: Chronic Assessment and plan: sliding scale insulin algorithm monitor FS and BG ADA diet Qualifiers: Diabetes mellitus type: type 2 Diabetes mellitus complication status: with neurologic complications Diabetes mellitus complication detail: with unspecified neuropathy Diabetes mellitus intermediate card tender insulin use: without intermediate card tender use Qualified Code(s): E11.40 - Type 2 diabetes mellitus with diabetic neuropathy, unspecified (4) PAD (peripheral artery disease) Current Visit: Yes Status: Chronic Assessment and plan: continue home meds (5) DVT prophylaxis Current Visit: Yes Status: Acute Assessment and plan: Heparin SQ (6) Anemia Current Visit: Yes Status: Acute Assessment and plan: H&H low but acceptable stool occult noted to be positive will f/u iron studies and obtain GI evaluation will closely monitor H&H Qualifiers: Anemia type: unspecified type Qualified Code(s): D64.9 - Anemia, unspecified - Subjective Interval history: Pt seen and examined at bedside. Pt remained agitated yesterday evening and refused medications. He pulled out his IV line and did not let another IV insertion until the mechanical design drafter had detailed discussion with the patient. He is currently willing to be compliant with the medical management. - Constitutional Vitals: Temp Pulse Resp BP Pulse Ox 97.7 F 88 16 121/69 98 11/06/17 11:08 11/06/17 11:08 11/06/17 11:08 11/06/17 11:08 11/06/17 11:08 General appearance: Present: A&O X 3, no acute distress - Head Head exam: Present: atraumatic, normocephalic - Eye Eye exam: Present: conjuntiva pink, sclera anicteric - Respiratory Respiratory exam: Present: CTAB. Absent: accessory muscle use, rales, rhonchi, wheezes - Cardiovascular Cardiovascular exam: Present: RRR, +S1, +S2. Absent: diastolic murmur, gallop, rubs, systolic murmur - GI/Abdominal GI/Abdominal exam: Present: normal bowel sounds, soft, no peritoneal signs. Absent: distended, tenderness - Extremities Exam Extremities exam: Present: warm, radial pulses palpable and symmetrical (s/p left AKA ). Absent: calf tenderness - Neurological Exam Neurological exam: Present: alert, oriented X3 - Psychiatric Psychiatric exam: Present: normal affect, normal mood Internal Medicine: Result - Labs CBC & Chem 7: 11/06/17 05:26 11/06/17 05:26 Labs: Short CBC 11/06/17 Range/Units 05:26 WBC 5.2 (4.3-11.1) K/mcL Hgb 8.7 L (12.9-16.9) g/dL Hct 26.9 L (37.5-50.1) % Plt Count 266 (140-400) K/mcL Neutrophils # 3.8 (1.6-8.9) K/mcL BMP 11/05/17 11/06/17 14:37 05:26 Sodium 142 144 Potassium 4.3 3.8 Chloride 111 H 113 H Carbon Dioxide 23 22 L BUN 35 H 36 H Creatinine 2.77 H 2.80 H Glucose 200 H 114 H Calcium 8.7 8.9 Consult Discharge Plan - Plan [facility]errals: [facility] [Primary Care Provider] - (Possible Placement)
[2017-11-06 23:49] LABS: Protein/Creatinine Ratio,Urine 0.28 mg/mg (0.00-0.20); Sodium, Urine 82.5 mEq/L
[2017-11-07] MEDS: 0.9 % Sodium Chloride 1,000 ML IVC SCH ×3 (00:33→17:08)
[2017-11-07] MEDS: Insulin LISPRO 300 UNITS/3 ML VIAL SQ SCH ×4 (00:42→17:07)
[2017-11-07] MEDS: *HR* Heparin 5,000 UNIT/ML VIAL SQ SCH ×2 (05:31→17:08)
[2017-11-07 06:13] LABS: Basophils % 0.2 %; Eosinophils # 0.1 K/mcL (0.0-0.6); Eosinophils % 1.8 %; Hematocrit 22.1 % (37.5-50.1); Hemoglobin 7.3 g/dL (12.9-16.9); Immature Granulocytes % 0.6 % (0-4); Lymphocytes # 0.4 K/mcL (0.6-4.6); Mean Corpuscular Hemoglobin 27.1 pg (28.0-33.3); Mean Corpuscular Volume 82.2 fL (83.0-100.0); Mean Platelet Volume 9.3 fL (9.4-12.4); Monocytes # 0.3 K/mcL (0.0-1.3); Monocytes % 5.1 %; Neutrophils # 4.3 K/mcL (1.6-8.9); Platelet Count 223 K/mcL (140-400); Red Blood Count 2.69 M/mcL (4.19-5.50); Red Cell Distribution Width 13.5 % (11.5-14.5); Segmented Neutrophils % 84.3 %
[2017-11-07 06:32] LABS: Calcium 8.1 mg/dL (8.6-10.3); Magnesium 1.8 mg/dL (1.6-2.6); Phosphorous 3.3 mg/dL (2.7-4.5)
[2017-11-07] MEDS: BUDESONIDE 3 MG PO SCH (09:12)
[2017-11-07] MEDS: [UNRECOGNIZED DRUG - OTHER] PO SCH (09:12)
[2017-11-07 09:29] LABS: Hematocrit 23.4 % (37.5-50.1); Hemoglobin 7.9 g/dL (12.9-16.9)
--- NOTE | 2017-11-07 11:40 | Nephrology Progress Note ---
Date of Encounter: 11/07/17 Time of Encounter: 11:05 - Assessment and Plan (1) Acute kidney injury Current Visit: Yes Status: Acute Nonoliguric MCKENNA that is trending better but slowly. Still pending serologies Anemia: appears to be potentially a GI bleed with +occult blood in the stool. I recommend GI consult with evaluation for endoscopy. Not quite symptomatic or low enough with his Hgb for transfusion of PRBCs, but will arrange for IV iron infusion of Feraheme. I discussed the SE profile with him. Continue to follow a renal protective strategy Will follow with you. Thank you. (2) BPH (benign prostatic hyperplasia) Current Visit: Yes Status: Chronic Nonoliguric and no hydro noted on renal U/S. Qualifiers: Lower urinary tract symptom detail: urinary retention Qualified Code(s): N40.1 - Benign prostatic hyperplasia with lower urinary tract symptoms; R33.8 - Other retention of urine; R33.8 - Other retention of urine (3) PAD (peripheral artery disease) Current Visit: Yes Status: Chronic (4) Hypomagnesemia Current Visit: Yes Status: Acute Recommend repletion. (5) Anemia Current Visit: Yes Status: Acute See above Qualifiers: Anemia type: unspecified type Qualified Code(s): D64.9 - Anemia, unspecified Subjective Principal diagnosis: MCKENNA Interval history: Pt was seen/examined. He did not affirm N/V/D or CP. He said that he's never had endoscopy in the past. He was taking several OTC vitamins such as for his prostate, as discussed with his floor RN. Objective - Vital Signs Vital signs: Vital Signs Temp Pulse Resp BP Pulse Ox 11/07/17 07:47 97.9 F 90 17 123/66 97 11/07/17 03:31 99.5 F 104 18 128/72 94 11/06/17 23:44 99.0 F 84 17 94 11/06/17 20:00 97.2 F L 95 18 109/64 95 11/06/17 17:02 98.1 F 92 14 144/75 94 Intake and Output 11/06/17 11/07/17 11/07/17 23:59 07:59 15:59 Intake Total 620 / 620 1999 / 1999 360 / 360 Output Total 425 / 425 350 / 350 220 / 220 Balance 195 / 195 1650 / 1650 140 / 140 Intake: IV Fluids 1999 0.9 % Sodium Chloride 1,000 ML 1999 @ 100 mls/hr IVC .Q10H PERI Rx#: [id number] Oral 620 / 620 360 / 360 Output: Urine 425 / 425 350 / 350 220 / 220 Other: Meal Breakfast Percent of Meal Consumed 100% Stool Size Moderate Stool Consistency soft formed Stool Characteristics Normal for Patient Stool Color Brown # Voids 1 3 # Bowel Movements 1 Weight 50.4 kg Blood Glucose* 255 135 Patient Weight 11/07/17 23:59 Weight 50.4 kg - General Appearance General appearance: Present: well-developed, appears started age, cachectic EENT: Present: ATNC, PERRL Additional Comments: Pallor noted of his face and sclera b/l Neck: Present: supple Respiratory: Present: clear Cardiology: Present: no edema, regular rate, regular rhythm, normal S1, normal S2 Gastrointestinal: Present: normoactive bowel sounds, no tenderness, no guarding Integumentary: Present: warm and dry Neurologic: Present: no focal deficit, no asterixis, alert and oriented x3 Musculoskeletal: Present: no erythema, no cyanosis Additional Comments: Right AKA Psychiatric: Present: mood/affect appropriate, cooperative - Lab 11/07/17 09:07 11/07/17 05:30 Most recent lab results Calcium 8.1 mg/dL (8.6-10.3) L 11/07/17 05:30 Phosphorus 3.3 mg/dL (2.7-4.5) 11/07/17 05:30 Magnesium 1.8 mg/dL (1.6-2.6) 11/07/17 05:30 Urine Creatinine 40 mg/dL 11/06/17 20:24 Urine Sodium 82.5 mEq/L 11/06/17 20:24 Urine Total Protein 11 mg/dL 11/06/17 20:24 Consult Discharge Plan - Plan [facility]errals: [facility] [Primary Care Provider] - (Possible Placement)
[2017-11-07] MEDS ORDERED: Ferumoxytol 510 MG in 0.9 % Sodium Chloride 100 ML IVPB ONE (11:43)
[2017-11-07] MEDS: GLUCOCIL PO SCH ×2 (12:26→17:07)
[2017-11-07] MEDS: Gabapentin 100 MG CAPSULE PO SCH ×2 (12:27→17:08)
--- NOTE | 2017-11-07 14:21 | Internal Med Progress Note ---
Date of Encounter: 11/07/17 Time of Encounter: 14:19 - Assessment and plan (1) Acute kidney injury Current Visit: Yes Status: Acute Assessment and plan: Renal function improved from previous day continue IV fluids nephrology evaluation appreciated continue to avoid nephrotoxins continue to closely monitor renal function (2) BPH (benign prostatic hyperplasia) Current Visit: Yes Status: Chronic Qualifiers: Lower urinary tract symptom detail: urinary retention Qualified Code(s): N40.1 - Benign prostatic hyperplasia with lower urinary tract symptoms; R33.8 - Other retention of urine; R33.8 - Other retention of urine (3) Diabetes mellitus Current Visit: Yes Status: Chronic Assessment and plan: sliding scale insulin algorithm monitor FS and BG ADA diet Qualifiers: Diabetes mellitus type: type 2 Diabetes mellitus complication status: with neurologic complications Diabetes mellitus complication detail: with unspecified neuropathy Diabetes mellitus terminal supervisor insulin use: without care home use Qualified Code(s): E11.40 - Type 2 diabetes mellitus with diabetic neuropathy, unspecified (4) PAD (peripheral artery disease) Current Visit: Yes Status: Chronic Assessment and plan: continue home meds (5) DVT prophylaxis Current Visit: Yes Status: Acute Assessment and plan: Heparin SQ (6) Anemia Current Visit: Yes Status: Acute Assessment and plan: H&H low but acceptable stool occult noted to be positive iron studies consistent with iron deficiency anemia, pt receiving iron supplementation GI evaluation requested will keep pt NPO after midnight will closely monitor H&H Qualifiers: Anemia type: unspecified type Qualified Code(s): D64.9 - Anemia, unspecified - Subjective Interval history: Pt seen and examined at bedside. Resting in bed and in a better mood today, willing to stay compliant and undergo all the necessary testing that is needed. Reported of having a colonoscopy in April 2017 at the [facility] that was negative for any acute bleed given positive stool occult, will obtain GI evaluation. Will keep NPO after midnight for possible EGD in am - Constitutional Vitals: Temp Pulse Resp BP Pulse Ox 98.3 F 87 17 132/74 96 11/07/17 12:10 11/07/17 12:10 11/07/17 12:10 11/07/17 12:10 11/07/17 12:10 General appearance: Present: A&O X 3, no acute distress - Head Head exam: Present: atraumatic, normocephalic - Eye Eye exam: Present: conjuntiva pink, sclera anicteric - Respiratory Respiratory exam: Present: CTAB. Absent: respiratory distress, wheezes - Cardiovascular Cardiovascular exam: Present: RRR, +S1, +S2. Absent: diastolic murmur, gallop, rubs, systolic murmur - GI/Abdominal GI/Abdominal exam: Present: normal bowel sounds, soft, no peritoneal signs. Absent: distended, tenderness - Extremities Exam Extremities exam: Present: warm, radial pulses palpable and symmetrical (s/p Lt AKA ). Absent: calf tenderness - Neurological Exam Neurological exam: Present: alert, oriented X3 Internal Medicine: Result - Labs CBC & Chem 7: 11/07/17 09:07 11/07/17 05:30 Labs: Short CBC 11/07/17 11/07/17 Range/Units 05:30 09:07 WBC 5.1 (4.3-11.1) K/mcL Hgb 7.3 L 7.9 L (12.9-16.9) g/dL Hct 22.1 L 23.4 L (37.5-50.1) % Plt Count 223 (140-400) K/mcL Neutrophils # 4.3 (1.6-8.9) K/mcL BMP 11/07/17 05:30 Sodium 142 Potassium 4.0 Chloride 114 H Carbon Dioxide 20 L BUN 37 H Creatinine 2.65 H Glucose 126 H Calcium 8.1 L Consult Discharge Plan - Plan [facility]errals: [facility] [Primary Care Provider] - (Possible Placement)
[2017-11-08] MEDS: [UNRECOGNIZED DRUG - OTHER] PO SCH ×3 (00:06→21:37)
[2017-11-08] MEDS: Insulin LISPRO 300 UNITS/3 ML VIAL SQ SCH ×5 (00:06→21:37)
[2017-11-08] MEDS: Gabapentin 100 MG CAPSULE PO SCH ×6 (00:06→21:37)
[2017-11-08] MEDS: 0.9 % Sodium Chloride 1,000 ML IVC SCH (03:02)
[2017-11-08] MEDS: *HR* Heparin 5,000 UNIT/ML VIAL SQ SCH ×2 (04:47→17:10)
[2017-11-08 07:05] LABS: Basophils % 0.2 %; Eosinophils # 0.1 K/mcL (0.0-0.6); Eosinophils % 1.4 %; Hematocrit 24.3 % (37.5-50.1); Immature Granulocytes % 0.4 % (0-4); Lymphocytes # 0.6 K/mcL (0.6-4.6); Lymphocytes % 11.8 %; Mean Corpuscular HGB Conc 32.9 g/dL (31.6-35.5); Mean Corpuscular Hemoglobin 26.9 pg (28.0-33.3); Mean Corpuscular Volume 81.8 fL (83.0-100.0); Mean Platelet Volume 9.1 fL (9.4-12.4); Monocytes # 0.2 K/mcL (0.0-1.3); Monocytes % 4.1 %; Platelet Count 249 K/mcL (140-400); Red Blood Count 2.97 M/mcL (4.19-5.50); Red Cell Distribution Width 13.6 % (11.5-14.5); Segmented Neutrophils % 82.1 %
[2017-11-08 07:15] LABS: INR 1.2; Prothrombin Time 13.4 Seconds (9.4-12.1)
[2017-11-08 07:23] LABS: Calcium 8.8 mg/dL (8.6-10.3); Magnesium 1.5 mg/dL (1.6-2.6); Phosphorous 2.9 mg/dL (2.7-4.5); Potassium 3.2 mEq/L (3.5-5.1)
[2017-11-08 08:29] LABS: ANA IgG by ELISA NONE DETECTED (None Detected); Myeloperoxidase Ab 0 AU/mL (0-19); Serine Protease-3 Antibody 0 AU/mL (0-19)
[2017-11-08] MEDS ORDERED: Magnesium Sulfate 1 GM in 0.9 % Sodium Chloride 50 ML IVPB ONE (08:33)
[2017-11-08] MEDS ORDERED: Potassium Chloride 20 MEQ, Lidocaine 1% 2 ML in D5% in Water 250 ML IVPB ONE (08:33)
[2017-11-08] MEDS: BUDESONIDE 3 MG PO SCH (08:45)
[2017-11-08] MEDS: GLUCOCIL PO SCH ×2 (08:47→17:09)
--- NOTE | 2017-11-08 10:54 | Nephrology Progress Note ---
Date of Encounter: 11/08/17 Time of Encounter: 09:45 - Assessment and Plan (1) Acute kidney injury Current Visit: Yes Status: Acute Nonoliguric MCKENNA that is trending better but slowly. Suspect the primary etiology has been from prolonged diarrhea/prerenal state. According to the pt, his pronounced diarrhea has been severe dating back to 2015 and recent intensified when metformin was increased. Continue to follow a renal protective strategy Will follow with you. Thank you. (2) BPH (benign prostatic hyperplasia) Current Visit: Yes Status: Chronic Nonoliguric and no hydro noted on renal U/S. Qualifiers: Lower urinary tract symptom detail: urinary retention Qualified Code(s): N40.1 - Benign prostatic hyperplasia with lower urinary tract symptoms; R33.8 - Other retention of urine; R33.8 - Other retention of urine (3) PAD (peripheral artery disease) Current Visit: Yes Status: Chronic (4) Hypomagnesemia Current Visit: Yes Status: Acute Recommend repletion. (5) Anemia Current Visit: Yes Status: Acute See above Qualifiers: Anemia type: unspecified type Qualified Code(s): D64.9 - Anemia, unspecified Subjective Principal diagnosis: MCKENNA Interval history: Pt was seen/examined. He did not affirm N/V/D or CP. He said that he's never had endoscopy in the past. He was taking several OTC vitamins such as for his prostate, as discussed with his floor RN. Objective - Vital Signs Vital signs: Vital Signs Temp Pulse Resp BP Pulse Ox 11/08/17 08:00 98.4 F 78 92 171/71 98 11/08/17 04:14 98.3 F 82 18 130/66 92 11/07/17 23:44 98.0 F 85 18 164/86 96 11/07/17 18:44 98.1 F 82 18 137/66 95 11/07/17 14:51 97.5 F L 85 16 141/72 11/07/17 12:10 98.3 F 87 17 132/74 96 Intake and Output 11/07/17 11/08/17 11/08/17 23:59 07:59 15:59 Intake Total 1750 / 1750 1250 / 1250 Output Total 750 / 750 700 / 700 Balance 1000 / 1000 550 / 550 Intake: IV Fluids 1000 / 1000 1250 / 1250 0.9 % Sodium Chloride 1,000 ML 1000 / 1000 1250 / 1250 @ 100 mls/hr IVC .Q10H PERI Rx#: [id number] Oral 750 / 750 0 / 0 Output: Urine 750 / 750 700 / 700 Other: Meal NPO # Voids 2 4 Weight 53 kg Blood Glucose* 204 110 Patient Weight 11/08/17 23:59 Weight 53 kg - General Appearance Exam: General appearance: Present: well-developed, appears started age, cachectic EENT: Present: ATNC, PERRL Additional Comments: Pallor noted of his face and sclera b/l Neck: Present: supple Respiratory: Present: clear Cardiology: Present: no edema, regular rate, regular rhythm, normal S1, normal S2 Gastrointestinal: Present: normoactive bowel sounds, no tenderness, no guarding Integumentary: Present: warm and dry Neurologic: Present: no focal deficit, no asterixis, alert and oriented x3 Musculoskeletal: Present: no erythema, no cyanosis Additional Comments: Right AKA Psychiatric: Present: mood/affect appropriate, cooperative - Lab 11/11/17 05:20 11/11/17 05:01 Most recent lab results Calcium 8.8 mg/dL (8.6-10.3) 11/08/17 06:46 Phosphorus 2.9 mg/dL (2.7-4.5) 11/08/17 06:46 Magnesium 1.5 mg/dL (1.6-2.6) L 11/08/17 06:46 Urine Creatinine 40 mg/dL 11/06/17 20:24 Urine Sodium 82.5 mEq/L 11/06/17 20:24 Urine Total Protein 11 mg/dL 11/06/17 20:24 - VTE Documentation of Mechanical Device: Intermittent pneumatic compression device Consult Discharge Plan - Plan Referrals: [facility] [Primary Care Provider] - (please call appt. discharge)
--- NOTE | 2017-11-08 13:08 | Internal Med Progress Note ---
Date of Encounter: 11/08/17 Time of Encounter: 13:06 - Assessment and plan (1) Acute kidney injury Current Visit: Yes Status: Acute Assessment and plan: Renal function improved from previous day continue IV fluids nephrology evaluation appreciated continue to avoid nephrotoxins continue to closely monitor renal function (2) BPH (benign prostatic hyperplasia) Current Visit: Yes Status: Chronic Qualifiers: Lower urinary tract symptom detail: urinary retention Qualified Code(s): N40.1 - Benign prostatic hyperplasia with lower urinary tract symptoms; R33.8 - Other retention of urine; R33.8 - Other retention of urine (3) Diabetes mellitus Current Visit: Yes Status: Chronic Assessment and plan: sliding scale insulin algorithm monitor FS and BG ADA diet Qualifiers: Diabetes mellitus type: type 2 Diabetes mellitus complication status: with neurologic complications Diabetes mellitus complication detail: with unspecified neuropathy Diabetes mellitus fci insulin use: without fci use Qualified Code(s): E11.40 - Type 2 diabetes mellitus with diabetic neuropathy, unspecified (4) PAD (peripheral artery disease) Current Visit: Yes Status: Chronic Assessment and plan: continue home meds (5) DVT prophylaxis Current Visit: Yes Status: Acute Assessment and plan: Heparin SQ (6) Anemia Current Visit: Yes Status: Acute Assessment and plan: H&H low but acceptable stool occult noted to be positive iron studies consistent with iron deficiency anemia, pt receiving iron supplementation tentatively scheduled for EGD later today (11/08/17) will closely monitor H&H Qualifiers: Anemia type: unspecified type Qualified Code(s): D64.9 - Anemia, unspecified (7) Hypertension Current Visit: Yes Status: Acute Assessment and plan: noted to be hypertensive this morning will continue home meds added Hydralazine 10mg IV q6h prn SBP>160 will adjust home medications accordingly if continues to require the PRN hydralazine dose will monitor BP closely Qualifiers: Hypertension type: essential hypertension Qualified Code(s): I10 - Essential (primary) hypertension - Subjective Interval history: Pt seen and examined at bedside. Reesting in bed and denies any discomfort. Tentatively scheduled for EGD later today (11/08/17) - Constitutional Vitals: Temp Pulse Resp BP Pulse Ox 98.1 F 85 14 180/77 95 11/08/17 11:18 11/08/17 11:18 11/08/17 11:18 11/08/17 11:18 11/08/17 11:18 General appearance: Present: A&O X 3, no acute distress - Head Head exam: Present: atraumatic, normocephalic - Eye Eye exam: Present: conjuntiva pink, sclera anicteric - Respiratory Respiratory exam: Present: CTAB. Absent: accessory muscle use, rales, rhonchi, wheezes - Cardiovascular Cardiovascular exam: Present: RRR, +S1, +S2. Absent: diastolic murmur, gallop, rubs, systolic murmur - GI/Abdominal GI/Abdominal exam: Present: normal bowel sounds, soft, no peritoneal signs. Absent: distended, tenderness - Extremities Exam Extremities exam: Present: warm, radial pulses palpable and symmetrical (s/p Lt AKA ). Absent: calf tenderness - Neurological Exam Neurological exam: Present: alert, oriented X3 Internal Medicine: Result - Labs CBC & Chem 7: 11/08/17 06:46 11/08/17 06:46 Labs: Short CBC 11/08/17 Range/Units 06:46 WBC 4.9 (4.3-11.1) K/mcL Hgb 8.0 L (12.9-16.9) g/dL Hct 24.3 L (37.5-50.1) % Plt Count 249 (140-400) K/mcL Neutrophils # 4.0 (1.6-8.9) K/mcL BMP 11/08/17 06:46 Sodium 145 Potassium 3.2 L Chloride 116 H Carbon Dioxide 19 L BUN 36 H Creatinine 2.54 H Glucose 121 H Calcium 8.8 - ABG Interpretation ABG results: PT/INR, D-dimer PT 13.4 Seconds (9.4-12.1) H 11/08/17 06:46 - VTE Documentation of Mechanical Device: Intermittent pneumatic compression device Consult Discharge Plan - Plan [facility]errals: [facility]Primary Care Provider[facility] - (Possible Placement)
--- NOTE | 2017-11-08 14:03 | Anesthesia Evaluation PreOp ---
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: CVA (residual R-arm weakness) Other Medical History: Renal (ARF this hospitalization), Diabetes Type II ( maintained on Glucotrol), Other (BPH w/ urinary retention this hopsitalization) Anesthesia History: No Prior Anesthetic Complications, Past Anesthesia (L-AKA, T &A, L-wrist, CTR, Scrotal Cyst excision 12/2016) Alcohol Use: none Drug use: none Medications and Allergies Cilostazol 100 mg PO BID 01/18/17 [History] Clopidogrel [Plavix] 75 mg PO DAILY 01/18/17 [History] Metoprolol [Lopressor] 25 mg PO BID 01/18/17 [History] Simvastatin [Zocor] 40 mg PO HS 01/18/17 [History] Budesonide [Entocort EC] 9 mg PO DAILY 11/04/17 [History] Dextrose [Glucose] 16 gm PO AD PRN 11/04/17 [History] Gabapentin [Neurontin] 600 mg PO QID 11/04/17 [History] Glucocil 2 cap PO BIDWM 11/04/17 [History] Loperamide HCl [Anti-Diarrheal] 2 mg PO PER PKG DI PRN 11/04/17 [History] Potassium Chloride Elixir [Potassium Chloride] 20 meq PO DAILY 11/04/17 [History ] glipiZIDE [Glucotrol] 5 mg PO 0800 11/04/17 [History] 3 Allergy/AdvReac Type Severity Reaction Status Date / Time metformin AdvReac Diarrhea Verified 11/04/17 13:14 - Meds/Allergy Pre-op Review Medications Reviewed: Yes Allergies Reviewed: Yes Beta Blockers on Current Med List: Yes (Metoprolol) If Beta Blockers taken, Date/Time (Last Dose taken): 11/08/2017 @ 0842 Anesthesia Results - Labs 11/08/17 06:46 02/12/18 06:46 Laboratory Results WBC 4.9 K/mcL (4.3-11.1) 11/08/17 06:46 RBC 2.97 M/mcL (4.19-5.50) L 11/08/17 06:46 Hgb 8.0 g/dL (12.9-16.9) L 11/08/17 06:46 Hct 24.3 % (37.5-50.1) L 11/08/17 06:46 MCV 81.8 fL (83.0-100.0) L 11/08/17 06:46 MCH 26.9 pg (28.0-33.3) L 11/08/17 06:46 MCHC 32.9 g/dL (31.6-35.5) 11/08/17 06:46 RDW 13.6 % (11.5-14.5) 11/08/17 06:46 Plt Count 249 K/mcL (140-400) 11/08/17 06:46 MPV 9.1 fL (9.4-12.4) L 11/08/17 06:46 Immature Gran % 0.4 % (0-4) 11/08/17 06:46 Seg Neutrophils % 82.1 % 11/08/17 06:46 Lymphocytes % 11.8 % 11/08/17 06:46 Monocytes % 4.1 % 11/08/17 06:46 Eosinophils % 1.4 % 11/08/17 06:46 Basophils % 0.2 % 11/08/17 06:46 Neutrophils # 4.0 K/mcL (1.6-8.9) 11/08/17 06:46 Lymphocytes # 0.6 K/mcL (0.6-4.6) 11/08/17 06:46 Monocytes # 0.2 K/mcL (0.0-1.3) 11/08/17 06:46 Eosinophils # 0.1 K/mcL (0.0-0.6) 11/08/17 06:46 Basophils # 0.0 K/mcL (0.0-0.2) 11/08/17 06:46 PT 13.4 Seconds (9.4-12.1) H 11/08/17 06:46 INR 1.2 11/08/17 06:46 Sodium 145 mEq/L (136-145) 11/08/17 06:46 Potassium 3.2 mEq/L (3.5-5.1) L 11/08/17 06:46 Chloride 116 mEq/L (98-107) H 11/08/17 06:46 Carbon Dioxide 19 mEq/L (23-29) L 11/08/17 06:46 BUN 36 mg/dL (8-23) H 11/08/17 06:46 Creatinine 2.54 mg/dL (0.70-1.30) H 11/08/17 06:46 Est GFR ( Amer) 31 (> 60) L 11/08/17 06:46 Est GFR (Non-Af Amer) 26 (> 60) L 11/08/17 06:46 BUN/Creatinine Ratio 14 (6-26) 11/08/17 06:46 Glucose 121 mg/dL (70-105) H 11/08/17 06:46 POC Glucose 204 (58-89) H 11/07/17 21:29 Est Mean Plasma Glucose 148 mg/dl 11/04/17 14:15 Hemoglobin A1c 6.8 % (-5.6) H 11/04/17 14:15 Calculated Osmolality 310 (280-300) H 11/08/17 06:46 Uric Acid 6.7 mg/dL (2.3-7.6) 11/05/17 14:37 Calcium 8.8 mg/dL (8.6-10.3) 11/08/17 06:46 Phosphorus 2.9 mg/dL (2.7-4.5) 11/08/17 06:46 Magnesium 1.5 mg/dL (1.6-2.6) L 11/08/17 06:46 Iron 35 mcg/dL (65-175) L 11/07/17 05:30 % Saturation 14 % (20-55) L 11/07/17 05:30 Transferrin 180 mg/dL (203-362) L 11/07/17 05:30 Ferritin 88 ng/ml (20-250) 11/07/17 05:30 Urine Color Yellow (Yellow) 11/04/17 13:30 Urine Clarity Clear (Clear) 11/04/17 13:30 Urine pH 6.0 pH Units (5.0-8.0) 11/04/17 13:30 Ur Specific Stryker 1.013 (1.010-1.025) 11/04/17 13:30 Urine Protein Trace mg/dL (Neg-Trace) 11/04/17 13:30 Urine Glucose (UA) Normal mg/dL (Normal) 11/04/17 13:30 Urine Ketones Negative mg/dL (Negative) 11/04/17 13:30 Urine Blood Negative (Negative) 11/04/17 13:30 Urine Nitrite Negative (Negative) 11/04/17 13:30 Urine Bilirubin Negative (Negative) 11/04/17 13:30 Urine Urobilinogen Normal mg/dL (Normal) 11/04/17 13:30 Ur Leukocyte Esterase Trace (Negative) H 11/04/17 13:30 Urine Microscopic RBC 0-3 per hpf (0-3) 11/04/17 13:30 Urine Microscopic WBC 3-5 per hpf (0-3) H 11/04/17 13:30 Ur Eosinophil Smear 0 % (None Seen) 11/06/17 20:24 Ur Squamous Epith Cells Moderate per lpf (None-Few) H 11/04/17 13:30 Urine Bacteria None Seen per hpf (None-Few) 11/04/17 13:30 Hyaline Casts None Seen per lpf (None-Few) 11/04/17 13:30 Ur Culture Indicated? YES (NO) A 11/04/17 13:30 Urine Creatinine 40 mg/dL 11/06/17 20:24 Protein/Creatinin Ratio 0.28 mg/mg (0.00-0.20) H 11/06/17 20:24 Urine Sodium 82.5 mEq/L 11/06/17 20:24 Urine Total Protein 11 mg/dL 11/06/17 20:24 Stool Occult Blood Positive (Negative) A 11/05/17 09:22 Rheumatoid Factor < 10 IU/mL (Less than 14) 11/05/17 14:37 BONI Screen NONE DETECTED (None Detected) 11/05/17 14:37 Myeloperoxidase Ab 0 AU/mL (0-19) 11/05/17 14:37 Serine Protease 3 Ab 0 AU/mL (0-19) 11/05/17 14:37 Impressions Retroperitoneum Ultrasound 11/04/17 17:53 IMPRESSION: Unremarkable ultrasound of the kidneys. No evidence of hydronephrosis. D/ / Elgin Sun MD / Elgin Sun MD Interpreting Provider: Elgin Sun MD - Imaging EKG: report reviewed (EKG dated 12/2016 - 64bpm SINUS RHYTHM POOR R WAVE PROGRESSION Electronically Signed On 01-08-2017 6:46:53 EDT by Ti Abreu MD) Anesthesia Exam Vital Signs Temp Pulse Resp BP Pulse Ox 11/08/17 13:28 98.3 F 83 17 126/68 95 11/08/17 11:18 98.1 F 85 14 180/77 95 11/08/17 08:00 98.4 F 78 92 171/71 98 11/08/17 04:14 98.3 F 82 18 130/66 92 11/07/17 23:44 98.0 F 85 18 164/86 96 11/07/17 18:44 98.1 F 82 18 137/66 95 11/07/17 14:51 97.5 F L 85 16 141/72 Intake and Output 11/07/17 11/08/17 11/08/17 23:59 07:59 15:59 Intake Total 1750 / 1750 1250 / 1250 Output Total 750 / 750 700 / 700 Balance 1000 / 1000 550 / 550 Intake: IV Fluids 1000 / 1000 1250 / 1250 0.9 % Sodium Chloride 1,000 ML 1000 / 1000 1250 / 1250 @ 100 mls/hr IVC .Q10H PERI Rx#: [id number] Oral 750 / 750 0 / 0 Output: Urine 750 / 750 700 / 700 Other: Meal NPO # Voids 2 4 Weight 53 kg Blood Glucose* 204 136 Patient Weight 11/08/17 23:59 Weight 53 kg Height: 5'5" Weight: 116 BMI = 19 NPO (# of Hours): MNoc - HEENT Pupil (Motor): Pupils equal, EOMI Mallampati: II Teeth: Edentulous Oral Opening: Greater than 3 - RADIO ELECTRICIAN LOC: Oriented RADIO ELECTRICIAN Motor: Normal RUE, Normal RLE, Normal Face, Deficit LUE (Weakness), Deficit LLE (Amputated) RADIO ELECTRICIAN Sensory: Normal: RUE, LUE, RLE, Face, Deficit: LLE - Cardiac Rhythm: Regular Murmur: None - Pulmonary Breath Sounds: bilateral Clear Respiratory Effort: Symmetrical Anesthesia Assess/Plan ASA Score: 3 (ARF, Anemia of unknown etiology, DM, PVDz, HTN) Modified [place] Scale for Level of Consciousness: Cooperative, oriented, and tranquil Anesthetic Plan: MAC Monitoring Plan: Standard Monitors Recovery Plan: PACU Anes Supervising Prov Stmt: Pt seen/evaluated, R&B discussed, questions answered and consent obtained. Sarah Welch MD
[2017-11-08] MEDS ORDERED: *HR* Propofol 200 MG/20 ML VIAL IVP ONE (14:34)
[2017-11-08] MEDS ORDERED: Tetracaine/Benzocaine/Butamben 200MG/SPRAY (100SPY/BOT) MM ONE (14:58)
[2017-11-08] MEDS: Sodium Bicarbonate 150 MEQ in D5% in Water 1,000 ML IVC SCH (16:31)
--- NOTE | 2017-11-08 16:43 | Gastroenterology Consult Note ---
<Dinorah Fuller - Last Filed: 11/08/17 16:39> Date of Encounter: 11/08/17 Time of Encounter: 12:50 - Assessment and plan (1) Anemia Current Visit: Yes Status: Acute Assessment and plan: Will proceed with EGD today, may also need colonoscopy. Monitor H&h. PPI daily. Qualifiers: Anemia type: unspecified type Qualified Code(s): D64.9 - Anemia, unspecified (2) Diarrhea Current Visit: Yes Status: Acute Assessment and plan: Pt reports chronic diarrhea since February 2017, will order stool studies. He reports had colonoscopy at [facility] 05/13, will obtain records. Will also order stool calprotectin, and pancreatic elastase. - Time Spent With Patient Total time spent is greater than 50% in coordination of care (as documented) at patient's floor/unit and/or counseling patient: GI History of Present Illness - Data of Consult Patient: new to practice Consult date: 11/08/17 Requesting Physician: Susie Steward MD - Consult Narrative Reason for consult: anemia History of present illness: Mr. Martinez is a 62-year-old man with a past medical history of CVA, diabetes, hypertension, and LA, left AKA. Recently found to be in ARF at [facility] and sent for w/u at Nephrology office. He was sent to ER by nephrology presents to the ER with a chief complaint of renal failure. He denies a prior history of kidney issues in the past. He does complain of diarrhea which has been ongoing since February 2017, he states he had a colonoscopy at the [facility] 05/13 which showed colitis and he was treated with steroids for 5 months with no relief. He denies any bloody or tarry stools. he denies fever or chills. No chest pain shortness of breath or abdominal pain. No dysuria or hematuria. 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 Hemoglobin on admission was 9.3 after hydration hemoglobin is now 8.0. MCV 81.8 MCH 26.9 MPV 9.1 INR 1.2 potassium 3.2, BUN 36, creatinine 2.54, iron level was 35. He was positive for occult blood. Colonoscopy: 05/13 [facility] EGD: denies NSAIDS/ASA: Anticoagulants: Pletal, plavix (9048) Heparin 0447 Past Med Surg Social Fam HX - Past Medical History Medical history: CVA, diabetes, hypertension, myocardial infarction, renal disease Psychiatric history: no psych history - Past Surgical History Surgical History: other (Left AKA) - Social History Smoking Status: Former smoker Smokeless Tobacco Status: No Alcohol use: none Drug use: none - Family History Mother Hx Family Endocrine Disorder: Yes (DM) Review of Systems: GI: as per ELEM GENERAL: denies fever, has some chills EYES: denies yellow discoloration ENT: denies pain with swallowing or difficulty swallowing CARDIO: denies chest pain, palpitations RESP: No Shortness of breath with exertion : denies change in color of urine NEURO: weakness HEME: Denies any bruising MS: chronic joint pain DERM: denies rash or itching PSYCH: history of anxiety and depression - Constitutional Vitals: Temp Pulse Resp BP Pulse Ox 97.9 F 86 16 155/67 97 11/08/17 14:17 11/08/17 14:17 11/08/17 14:17 11/08/17 14:17 11/08/17 14:17 Exam: CONSTITUTIONAL:~alert, no acute distress.~HEAD:~normocephalic.~EYES:~no jaundice.~NECK:~no obvious swelling.~HEART:~regular rate and rhythm, no murmurs. ~LUNGS:~bilateral fair air entry.~ABDOMEN:~non distended, soft, nontender, no masses palpable, no organomegaly, large midline abdominal scar well healed.~ RECTAL EXAM:~Deferred.~EXTREMITIES:~no clubbing, cyanosis or edema, left AKA.~ SKIN:~no stigmata of chronic liver disease, pallor noted.~NEUROLOGIC:~no obvious focal defect.~~~~ Results - Labs CBC & Chem 7: 11/08/17 06:46 11/08/17 06:46 Labs: Last Result Calcium 8.8 mg/dL (8.6-10.3) 11/08/17 06:46 Iron 35 mcg/dL (65-175) L 11/07/17 05:30 % Saturation 14 % (20-55) L 11/07/17 05:30 Transferrin 180 mg/dL (203-362) L 11/07/17 05:30 Ferritin 88 ng/ml (20-250) 11/07/17 05:30 Stool Occult Blood Positive (Negative) A 11/05/17 09:22 Entire Visit Hgb 8.0 g/dL (12.9-16.9) L 11/08/17 06:46 Hct 24.3 % (37.5-50.1) L 11/08/17 06:46 PT 13.4 Seconds (9.4-12.1) H 11/08/17 06:46 Ferritin 88 ng/ml (20-250) 11/07/17 05:30 - ABG ABG results: PT/INR, D-dimer PT 13.4 Seconds (9.4-12.1) H 11/08/17 06:46 Consult Discharge Plan - Plan Referrals: [facility] [Primary Care Provider] - (Possible Placement) <Josep Trinidad - Last Filed: 11/08/17 21:39> Date of Encounter: 11/08/17 - Time Spent With Patient Total time spent is greater than 50% in coordination of care (as documented) at patient's floor/unit and/or counseling patient: GI History of Present Illness - Data of Consult Requesting Physician: Susie Steward MD - Consult Narrative History of present illness: Mr. Martinez is a 62 year old male - Constitutional Vitals: Temp Pulse Resp BP Pulse Ox 97.6 F 120 16 120/66 94 11/08/17 20:34 11/08/17 20:34 11/08/17 20:34 11/08/17 20:34 11/08/17 20:34 Results - Labs CBC & Chem 7: 11/08/17 06:46 11/08/17 06:46 Labs: Last Result Calcium 8.8 mg/dL (8.6-10.3) 11/08/17 06:46 Iron 35 mcg/dL (65-175) L 11/07/17 05:30 % Saturation 14 % (20-55) L 11/07/17 05:30 Transferrin 180 mg/dL (203-362) L 11/07/17 05:30 Ferritin 88 ng/ml (20-250) 11/07/17 05:30 Stool Occult Blood Positive (Negative) A 11/05/17 09:22 Entire Visit Hgb 8.0 g/dL (12.9-16.9) L 11/08/17 06:46 Hct 24.3 % (37.5-50.1) L 11/08/17 06:46 PT 13.4 Seconds (9.4-12.1) H 11/08/17 06:46 Ferritin 88 ng/ml (20-250) 11/07/17 05:30 - ABG ABG results: PT/INR, D-dimer PT 13.4 Seconds (9.4-12.1) H 11/08/17 06:46 - Attending Attestation I examined this patient and my medical decision-making was reviewed with the LAB MANAGER. I agree with the documented findings, disposition and treatment plan as described except to the extent set forth below. 62 WM with anemia. Had a colon at [facility] recently. Rec: EGD and if negative rob need cap endo as out pt
[2017-11-08 18:14] LABS: Alpha 2 Globulin (PEP) 0.89 g/dL (0.48-1.05); Beta Globulin (PEP) 0.77 g/dL (0.48-1.10)
[2017-11-09 03:48] LABS: Basophils % 0.3 %; Eosinophils # 0.1 K/mcL (0.0-0.6); Eosinophils % 2.8 %; Hematocrit 20.8 % (37.5-50.1); Hemoglobin 6.7 g/dL (12.9-16.9); Immature Granulocytes % 0.8 % (0-4); Lymphocytes # 0.7 K/mcL (0.6-4.6); Lymphocytes % 18.1 %; Mean Corpuscular HGB Conc 32.2 g/dL (31.6-35.5); Mean Corpuscular Hemoglobin 26.5 pg (28.0-33.3); Mean Corpuscular Volume 82.2 fL (83.0-100.0); Monocytes # 0.2 K/mcL (0.0-1.3); Monocytes % 5.3 %; Neutrophils # 2.9 K/mcL (1.6-8.9); Platelet Count 235 K/mcL (140-400); Red Blood Count 2.53 M/mcL (4.19-5.50); Red Cell Distribution Width 13.6 % (11.5-14.5); Segmented Neutrophils % 72.7 %
[2017-11-09 04:11] LABS: Calcium 8.1 mg/dL (8.6-10.3); Magnesium 1.6 mg/dL (1.6-2.6); Phosphorous 3.5 mg/dL (2.7-4.5)
[2017-11-09] MEDS: Sodium Bicarbonate 150 MEQ in D5% in Water 1,000 ML IVC SCH (04:36)
[2017-11-09] MEDS: *HR* Heparin 5,000 UNIT/ML VIAL SQ SCH ×2 (04:37→17:18)
[2017-11-09 07:29] LABS: IFE Reflexed IFE Done; Immunoglobulin A 196 mg/dL (68-408); Immunoglobulin G 644 mg/dL (768-1632); Immunoglobulin M 79 mg/dL (35-263)
[2017-11-09] MEDS: Gabapentin 100 MG CAPSULE PO SCH ×4 (08:12→20:33)
[2017-11-09] MEDS: Insulin LISPRO 300 UNITS/3 ML VIAL SQ SCH ×4 (08:12→20:34)
[2017-11-09] MEDS: [UNRECOGNIZED DRUG - OTHER] PO SCH ×2 (08:15→20:35)
[2017-11-09] MEDS: BUDESONIDE 3 MG PO SCH (08:15)
[2017-11-09 09:35] LABS: Hemoglobin 7.2 g/dL (12.9-16.9)
--- NOTE | 2017-11-09 10:50 | Anesthesia Evaluation Post Op ---
Date of Encounter: 11/09/17 Time of Encounter: 10:49 - Vital Signs Vital Signs: Vital Signs/O2 Sat, Most Current Temp Pulse Resp BP Pulse Ox 100.6 F H 105 16 101/60 90 11/09/17 10:15 11/09/17 10:15 11/09/17 10:15 11/09/17 10:15 11/09/17 10:15 - Lungs Lungs: Clear Ascult./Percussion - Airway Airway: Non-obstructed - Cardiovascular Regular Rate - Mental Status Mental Status: Alert & Oriented, Answers Appropriately - Nausea Vomiting Nausea Vomiting: Not Present
[2017-11-09] MEDS: GLUCOCIL PO SCH ×2 (11:51→17:18)
[2017-11-09] MEDS ORDERED: SODIUM CHLORIDE/NAHCO3/KCL/PEG 4,000 ML SOLN.RECON PO ONE (13:56)
[2017-11-09] MEDS ORDERED: Acetaminophen 325 MG TABLET PO PRN (14:11)
--- NOTE | 2017-11-09 14:12 | Internal Med Progress Note ---
Date of Encounter: 11/09/17 Time of Encounter: 14:10 - Assessment and plan (1) Acute kidney injury Current Visit: Yes Status: Acute Assessment and plan: Renal function improved from previous day continue IV fluids(on bicarb infusion, will continue) nephrology evaluation appreciated continue to avoid nephrotoxins continue to closely monitor renal function (2) BPH (benign prostatic hyperplasia) Current Visit: Yes Status: Chronic Qualifiers: Lower urinary tract symptom detail: urinary retention Qualified Code(s): N40.1 - Benign prostatic hyperplasia with lower urinary tract symptoms; R33.8 - Other retention of urine; R33.8 - Other retention of urine (3) Diabetes mellitus Current Visit: Yes Status: Chronic Assessment and plan: sliding scale insulin algorithm monitor FS and BG ADA diet Qualifiers: Diabetes mellitus type: type 2 Diabetes mellitus complication status: with neurologic complications Diabetes mellitus complication detail: with unspecified neuropathy Diabetes mellitus long-term insulin use: without buttermilk drier operator use Qualified Code(s): E11.40 - Type 2 diabetes mellitus with diabetic neuropathy, unspecified (4) PAD (peripheral artery disease) Current Visit: Yes Status: Chronic Assessment and plan: continue home meds (5) DVT prophylaxis Current Visit: Yes Status: Acute Assessment and plan: Heparin SQ (6) Anemia Current Visit: Yes Status: Acute Assessment and plan: H&H low but acceptable stool occult noted to be positive iron studies consistent with iron deficiency anemia, pt receiving iron supplementation s/p EGD (11/08/17): no acute bleeding reported, scheduled for colonoscopy in am ( 11/10/17) will closely monitor H&H NOted to be febrile with tmax of 100.6, denies any chills, cough, dysuria, will closely monitor Qualifiers: Anemia type: unspecified type Qualified Code(s): D64.9 - Anemia, unspecified (7) Hypertension Current Visit: Yes Status: Acute Assessment and plan: BP within acceptable range will continue home meds Hydralazine 10mg IV q6h prn SBP>160 will adjust home medications accordingly if continues to require the PRN hydralazine dose will monitor BP closely Qualifiers: Hypertension type: essential hypertension Qualified Code(s): I10 - Essential (primary) hypertension (8) Hypokalemia Current Visit: Yes Status: Acute Assessment and plan: K supplemented continue to monitor electrolytes and replace as needed - Subjective Interval history: Pt seen and examined at bedside. Denies any discomfort. s/p EGD on 11/08/13: negative for any acute bleed GI had recommended colonoscopy if EGD negative, after follow up, now scheduled for colonoscopy in am (11/10/17) given persistent anemia - Constitutional Vitals: Temp Pulse Resp BP Pulse Ox 100.6 F H 105 16 101/60 90 11/09/17 10:15 11/09/17 10:15 11/09/17 10:15 11/09/17 10:15 11/09/17 10:15 General appearance: Present: A&O X 3, no acute distress - Head Head exam: Present: atraumatic, normocephalic - Eye Eye exam: Present: conjuntiva pink, sclera anicteric - Respiratory Respiratory exam: Present: CTAB. Absent: respiratory distress, wheezes - Cardiovascular Cardiovascular exam: Present: RRR, +S1, +S2. Absent: diastolic murmur, gallop, rubs, systolic murmur - GI/Abdominal GI/Abdominal exam: Present: normal bowel sounds, soft, no peritoneal signs. Absent: distended, tenderness - Extremities Exam Extremities exam: Present: warm, radial pulses palpable and symmetrical (s/p Lt AKA ). Absent: calf tenderness - Neurological Exam Neurological exam: Present: alert, oriented X3 Internal Medicine: Result - Labs CBC & Chem 7: 11/09/17 09:10 11/09/17 03:27 Labs: Short CBC 11/09/17 11/09/17 Range/Units 03:27 09:10 WBC 3.9 L (4.3-11.1) K/mcL Hgb 6.7 L 7.2 L (12.9-16.9) g/dL Hct 20.8 L 22.0 L (37.5-50.1) % Plt Count 235 (140-400) K/mcL Neutrophils # 2.9 (1.6-8.9) K/mcL BMP 11/09/17 03:27 Sodium 147 H Potassium 3.0 L Chloride 114 H Carbon Dioxide 25 BUN 25 H Creatinine 2.40 H Glucose 120 H Calcium 8.1 L - ABG Interpretation ABG results: PT/INR, D-dimer PT 13.4 Seconds (9.4-12.1) H 11/08/17 06:46 - VTE Documentation of Mechanical Device: Intermittent pneumatic compression device Consult Discharge Plan - Plan [facility]errals: [facility] [Primary Care Provider] - (Possible Placement)
--- NOTE | 2017-11-09 14:34 | Event Note ---
Date of Encounter: 11/09/17 Time of Encounter: 14:[address] Trinidad regarding continued drop in hgb, will plan for push enteroscopy and colonoscopy in the am. Prep ordered and Dr Steward notified.
--- NOTE | 2017-11-09 16:43 | Nephrology Progress Note ---
Date of Encounter: 11/09/17 Time of Encounter: 12:25 - Assessment and Plan (1) Acute kidney injury Current Visit: Yes Status: Acute Nonoliguric MCKENNA that is trending better but slowly. Suspect the primary etiology has been from prolonged diarrhea/prerenal state. According to the pt, his pronounced diarrhea has been severe dating back to 2015 and recent intensified when metformin was increased. Serologies were unremarkable. No need for a renal biopsy. Anemia: s/p endoscopy. Appreciate GI. S/p 1 of 2 doses of Feraheme provided. Next dose recommended in about a week. Continue to follow a renal protective strategy Will follow with you. Thank you. (2) BPH (benign prostatic hyperplasia) Current Visit: Yes Status: Chronic Nonoliguric and no hydro noted on renal U/S. Qualifiers: Lower urinary tract symptom detail: urinary retention Qualified Code(s): N40.1 - Benign prostatic hyperplasia with lower urinary tract symptoms; R33.8 - Other retention of urine; R33.8 - Other retention of urine (3) PAD (peripheral artery disease) Current Visit: Yes Status: Chronic (4) Hypomagnesemia Current Visit: Yes Status: Acute Recommend repletion. (5) Anemia Current Visit: Yes Status: Acute See above Qualifiers: Anemia type: unspecified type Qualified Code(s): D64.9 - Anemia, unspecified (6) Hypokalemia Current Visit: Yes Status: Acute Replete, and agree with KCl. Now off IVF, which should help. Subjective Principal diagnosis: MCKENNA Interval history: He had endoscopy yesterday and the report was reviewed as was his labs, meds, progress notes, vitals and etc. He was resting in his room. No new major complaints reported other than still wanting to discharge soon. Objective - Vital Signs Vital signs: Vital Signs Temp Pulse Resp BP Pulse Ox 11/09/17 10:15 100.6 F H 105 16 101/60 90 11/09/17 07:37 98.6 F 101 16 127/64 92 11/09/17 04:20 98.2 F 90 16 126/69 94 11/08/17 23:21 98.2 F 100 16 131/71 94 11/08/17 20:34 97.6 F 120 16 120/66 94 11/08/17 17:23 97.3 F L 66 16 109/51 100 Intake and Output 11/09/17 11/09/17 11/09/17 07:59 15:59 23:59 Intake Total 1000 / 1000 600 / 600 Output Total 1200 / 1200 500 / 500 Balance -200 / -200 100 / 100 Intake: IV Fluids 1000 / 1000 Sodium Bicarbonate 150 MEQ In 1000 / 1000 Dextrose 5% 1,000 ML @ 100 mls/ hr IVC .[id number] [facility] Rx#: [id number] Oral 600 / 600 Output: Urine 1200 / 1200 500 / 500 Other: Meal Lunch Percent of Meal Consumed 100% Weight 54.7 kg 53.6 kg Blood Glucose* 194 99 Patient Weight 11/09/17 23:59 Weight 53.6 kg - General Appearance General appearance: Present: cachectic EENT: Present: ATNC, PERRL Cardiology: Present: no edema, regular rate, regular rhythm (on the monitor) Additional Comments: Left AKA - Lab 11/09/17 09:10 11/09/17 03:27 Most recent lab results Calcium 8.1 mg/dL (8.6-10.3) L 11/09/17 03:27 Phosphorus 3.5 mg/dL (2.7-4.5) 11/09/17 03:27 Magnesium 1.6 mg/dL (1.6-2.6) 11/09/17 03:27 Urine Creatinine 40 mg/dL 11/06/17 20:24 Urine Sodium 82.5 mEq/L 11/06/17 20:24 Urine Total Protein 11 mg/dL 11/06/17 20:24 - VTE Documentation of Mechanical Device: Intermittent pneumatic compression device Consult Discharge Plan - Plan [facility]errals: [facility] [Primary Care Provider] - (Possible Placement)
[2017-11-10 04:20] LABS: Basophils % 0.3 %; Eosinophils # 0.1 K/mcL (0.0-0.6); Eosinophils % 3.3 %; Hematocrit 21.6 % (37.5-50.1); Hemoglobin 7.1 g/dL (12.9-16.9); Immature Granulocytes % 0.8 % (0-4); Lymphocytes # 0.7 K/mcL (0.6-4.6); Lymphocytes % 17.1 %; Mean Corpuscular HGB Conc 32.9 g/dL (31.6-35.5); Mean Corpuscular Hemoglobin 26.6 pg (28.0-33.3); Mean Corpuscular Volume 80.9 fL (83.0-100.0); Mean Platelet Volume 8.9 fL (9.4-12.4); Monocytes # 0.3 K/mcL (0.0-1.3); Monocytes % 7.1 %; Neutrophils # 2.8 K/mcL (1.6-8.9); Platelet Count 210 K/mcL (140-400); Red Blood Count 2.67 M/mcL (4.19-5.50); Red Cell Distribution Width 13.6 % (11.5-14.5); Segmented Neutrophils % 71.4 %
[2017-11-10 04:50] LABS: Calcium 8.5 mg/dL (8.6-10.3); Magnesium 1.2 mg/dL (1.6-2.6); Phosphorous 3.6 mg/dL (2.7-4.5); Potassium 3.1 mEq/L (3.5-5.1)
[2017-11-10] MEDS: *HR* Heparin 5,000 UNIT/ML VIAL SQ SCH ×2 (05:36→16:56)
[2017-11-10] MEDS: Insulin LISPRO 300 UNITS/3 ML VIAL SQ SCH ×4 (08:51→20:25)
[2017-11-10] MEDS: Gabapentin 100 MG CAPSULE PO SCH ×4 (09:13→20:25)
[2017-11-10] MEDS: [UNRECOGNIZED DRUG - OTHER] PO SCH ×2 (09:15→21:26)
[2017-11-10] MEDS: BUDESONIDE 3 MG PO SCH (09:15)
--- NOTE | 2017-11-10 11:03 | Nephrology Progress Note ---
Date of Encounter: 11/10/17 Time of Encounter: 09:45 - Assessment and Plan (1) Acute kidney injury Current Visit: Yes Status: Acute Continuing to trend better in terms of renal function. Neg serologies and no indication for renal biopsy. Most likely etiology of the CKD was from prolonged diarrhea/GI losses and prerenal state. Hypomag and hypokalemia: replete. Suspect from long hx of colitis/malabsorption/ GI losses. Appreciate GI Continue to follow a renal protective strategy Will follow with you. Thank you. (2) BPH (benign prostatic hyperplasia) Current Visit: Yes Status: Chronic Nonoliguric and no hydro noted on renal U/S. Qualifiers: Lower urinary tract symptom detail: urinary retention Qualified Code(s): N40.1 - Benign prostatic hyperplasia with lower urinary tract symptoms; R33.8 - Other retention of urine; R33.8 - Other retention of urine (3) PAD (peripheral artery disease) Current Visit: Yes Status: Chronic (4) Hypomagnesemia Current Visit: Yes Status: Acute Recommend repletion. (5) Anemia Current Visit: Yes Status: Acute See above Qualifiers: Anemia type: unspecified type Qualified Code(s): D64.9 - Anemia, unspecified (6) Hypokalemia Current Visit: Yes Status: Resolved Replete, and agree with KCl. Now off IVF, which should help. Subjective Principal diagnosis: MCKENNA Interval history: He had endoscopy yesterday and the report was reviewed as was his labs, meds, progress notes, vitals and etc. He was resting in his room. No new major complaints reported other than still wanting to discharge soon. Objective - Vital Signs Vital signs: Vital Signs Temp Pulse Resp BP Pulse Ox 11/10/17 07:32 98.0 F 85 16 117/66 95 11/10/17 03:37 98.7 F 94 16 98/62 93 11/09/17 23:51 98.3 F 70 16 154/74 99 11/09/17 19:44 97.5 F L 80 16 165/64 99 11/09/17 17:22 98.1 F 98 16 149/53 92 Intake and Output 11/09/17 11/10/17 11/10/17 23:59 07:59 15:59 Intake Total 400 / 400 Output Total 4100 / 4100 Balance -3700 / -3700 Intake: Oral 400 / 400 Output: Urine 1800 / 1800 Stool 2300 / 2300 Other: Stool Size Large Stool Consistency liquid Stool Characteristics Normal for Patient Stool Color Brown # Bowel Movements 5 Blood Glucose* 230 100 - General Appearance Exam: General appearance: Present: well-developed, appears started age, cachectic EENT: Present: ATNC, PERRL Neck: Present: supple Respiratory: Present: clear Cardiology: Present: no edema, regular rate, regular rhythm, normal S1, normal S2 Gastrointestinal: Present: normoactive bowel sounds, no tenderness, no guarding Integumentary: Present: warm and dry Neurologic: Present: no focal deficit, no asterixis, alert and oriented x3 Musculoskeletal: Present: no erythema, no cyanosis Additional Comments: Right AKA Psychiatric: Present: mood/affect appropriate, cooperative - Lab 11/11/17 05:20 11/11/17 05:01 Most recent lab results Calcium 8.5 mg/dL (8.6-10.3) L 11/10/17 04:09 Phosphorus 3.6 mg/dL (2.7-4.5) 11/10/17 04:09 Magnesium 1.2 mg/dL (1.6-2.6) L 11/10/17 04:09 Urine Creatinine 40 mg/dL 11/06/17 20:24 Urine Sodium 82.5 mEq/L 11/06/17 20:24 Urine Total Protein 11 mg/dL 11/06/17 20:24 - VTE Documentation of Mechanical Device: Intermittent pneumatic compression device Consult Discharge Plan - Plan [facility]errals: [facility] [Primary Care Provider] - (please call appt. discharge)
[2017-11-10] MEDS: GLUCOCIL PO SCH ×2 (11:28→15:46)
[2017-11-10] MEDS ORDERED: Simethicone 40 MG/0.6 ML MLS IR ONE (13:39)
[2017-11-10] MEDS ORDERED: Tetracaine/Benzocaine/Butamben 200MG/SPRAY (100SPY/BOT) MM ONE (13:39)
--- NOTE | 2017-11-10 13:41 | Anesthesia Evaluation PreOp ---
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 History: CVA (Residual Rt arm weakness) Other Medical History: Renal (LUBA), Diabetes Type II, Other (BPH) Alcohol Use: none Drug use: none Medications and Allergies Cilostazol 100 mg PO BID 01/18/17 [History] Clopidogrel [Plavix] 75 mg PO DAILY 01/18/17 [History] Metoprolol [Lopressor] 25 mg PO BID 01/18/17 [History] Simvastatin [Zocor] 40 mg PO HS 01/18/17 [History] Budesonide [Entocort EC] 9 mg PO DAILY 11/04/17 [History] Dextrose [Glucose] 16 gm PO AD PRN 11/04/17 [History] Gabapentin [Neurontin] 600 mg PO QID 11/04/17 [History] Glucocil 2 cap PO BIDWM 11/04/17 [History] Loperamide HCl [Anti-Diarrheal] 2 mg PO PER PKG DI PRN 11/04/17 [History] Potassium Chloride Elixir [Potassium Chloride] 20 meq PO DAILY 11/04/17 [History ] glipiZIDE [Glucotrol] 5 mg PO 0800 11/04/17 [History] 3 Allergy/AdvReac Type Severity Reaction Status Date / Time metformin AdvReac Diarrhea Verified 11/04/17 13:14 - Meds/Allergy Pre-op Review Medications Reviewed: Yes Allergies Reviewed: Yes Beta Blockers on Current Med List: Yes (Metoprolo today 913) Anesthesia Results - Labs 11/10/17 04:09 11/10/17 04:09 - Imaging EKG: report reviewed (SR poor R wave progression) Anesthesia Exam O2 Sat O2 Sat by Pulse Oximetry 95 O2 Sat by Pulse Oximetry 95 O2 Sat by Pulse Oximetry 95 O2 Sat by Pulse Oximetry 93 O2 Sat by Pulse Oximetry 99 O2 Sat by Pulse Oximetry 99 O2 Sat by Pulse Oximetry 92 Vital Signs Temp Pulse Resp BP Pulse Ox 98.5 F 86 16 123/71 98 11/04/17 13:10 11/04/17 13:10 11/04/17 13:10 11/04/17 13:10 11/04/17 13:10 Height: 5'5 Weight: 118 lbs NPO (# of Hours): MN Pain Scale: 0 - HEENT Pupil (Motor): Pupils equal, EOMI Mallampati: III Teeth: Edentulous Oral Opening: Less than or equal to 3 - SENIOR CONTROLS ANALYST LOC: Oriented SENIOR CONTROLS ANALYST Motor: Normal RUE, Normal LUE, Normal RLE, Normal LLE, Normal Face [employer]ENIOR CONTROLS ANALYST Sensory: Normal: RUE, LUE, RLE, LLE, Face - Cardiac Rhythm: Regular Murmur: None JVD: No Carotid Bruit: No - Pulmonary Breath Sounds: bilateral Clear Respiratory Effort: Symmetrical Anesthesia Assess/Plan ASA Score: 3 (CAD HTN DM CKD Anemia) Modified Matthew Scale for Level of Consciousness: Cooperative, oriented, and tranquil Anesthetic Plan: MAC Monitoring Plan: Standard Monitors Recovery Plan: Other (Discussed MAC, agrees to proceed)
[2017-11-10] MEDS ORDERED: 0.9 % Sodium Chloride 1,000 ML IVC SCH (13:45)
[2017-11-10] MEDS ORDERED: Propofol 500 MG/50 ML INFUS..BTL ONE (14:00)
[2017-11-10 15:32] LABS: Urine Collection Duration RANDOM hr; Urine Collection Volume RANDOM mL
--- NOTE | 2017-11-10 17:27 | Internal Med Progress Note ---
Date of Encounter: 11/10/17 Time of Encounter: 11:00 - Assessment and plan (1) Acute renal failure (ARF) Current Visit: Yes Status: Acute Assessment and plan: -Patient with non-oliguric acute renal failure. -Nephrology consult suspect secondary to chronic diarrhea (prerenal). -Renal function slowly improving -Nephrology following an appreciate any additional recommendations Qualifiers: Acute renal failure type: unspecified Qualified Code(s): N17.9 - Acute kidney failure, unspecified (2) Anemia Current Visit: Yes Status: Acute Assessment and plan: -Hemoglobin 7.1 this morning; hemoglobin was 9.3 on admission -GI consulted for recommendations for EGD/colonoscopy -Stool occult noted to be positive -Iron studies consistent with iron deficiency anemia; patient receiving iron supplementation -EGD (11/08/17) showed multiple nonbleeding duodenal ulcers with no stigmata of bleeding -Colonoscopy (11/10/17) showed 3 colonic angioectasias which was treated with argon plasma coagulation -Will continue to monitor H&H Qualifiers: Anemia type: unspecified type Qualified Code(s): D64.9 - Anemia, unspecified (3) Diarrhea Current Visit: Yes Status: Acute Assessment and plan: -GI consulted with recommendations for colonoscopy as above Qualifiers: Diarrhea type: unspecified type Qualified Code(s): R19.7 - Diarrhea, unspecified (4) Hypertension Current Visit: Yes Status: Acute Assessment and plan: BP within acceptable range will continue home meds Hydralazine 10mg IV q6h prn SBP>160 will adjust home medications accordingly if continues to require the PRN hydralazine dose will monitor BP closely Qualifiers: Hypertension type: essential hypertension Qualified Code(s): I10 - Essential (primary) hypertension (5) Diabetes mellitus Current Visit: Yes Status: Chronic Assessment and plan: sliding scale insulin algorithm monitor FS and BG ADA diet (6) PAD (peripheral artery disease) Current Visit: Yes Status: Chronic Assessment and plan: continue home meds - Subjective Interval history: Patient's hemoglobin continues to trend downward this morning Scheduled for colonoscopy today Renal function improving - Constitutional Vitals: Temp Pulse Resp BP Pulse Ox 97.5 F L 85 16 107/66 95 11/10/17 16:35 11/10/17 16:35 11/10/17 16:35 11/10/17 16:35 11/10/17 16:35 General appearance: Present: A&O X 3, no acute distress - Respiratory Respiratory exam: Present: CTAB. Absent: accessory muscle use, rales, rhonchi, wheezes - Cardiovascular Cardiovascular exam: Present: RRR, +S1, +S2. Absent: diastolic murmur, gallop, rubs, systolic murmur Internal Medicine: Result - Labs CBC & Chem 7: 11/10/17 04:09 11/10/17 04:09 Labs: Short CBC 11/10/17 Range/Units 04:09 WBC 3.9 L (4.3-11.1) K/mcL Hgb 7.1 L (12.9-16.9) g/dL Hct 21.6 L (37.5-50.1) % Plt Count 210 (140-400) K/mcL Neutrophils # 2.8 (1.6-8.9) K/mcL BMP 11/10/17 04:09 Sodium 142 Potassium 3.1 L Chloride 109 H Carbon Dioxide 23 BUN 25 H Creatinine 2.37 H Glucose 104 Calcium 8.5 L - ABG Interpretation ABG results: PT/INR, D-dimer PT 13.4 Seconds (9.4-12.1) H 11/08/17 06:46 - VTE Documentation of Mechanical Device: Intermittent pneumatic compression device Consult Discharge Plan - Plan [facility]errals: [facility] [Primary Care Provider] - (please call appt. discharge)
[2017-11-11] MEDS ORDERED: 0.9 % Sodium Chloride 1,000 ML ONE (04:57)
[2017-11-11 05:38] LABS: Basophils % 0.1 %; Eosinophils # 0.1 K/mcL (0.0-0.6); Eosinophils % 1.1 %; Hematocrit 24.5 % (37.5-50.1); Hemoglobin 8.2 g/dL (12.9-16.9); Immature Granulocytes % 0.3 % (0-4); Lymphocytes # 0.6 K/mcL (0.6-4.6); Lymphocytes % 7.2 %; Mean Corpuscular HGB Conc 33.5 g/dL (31.6-35.5); Mean Corpuscular Hemoglobin 27.4 pg (28.0-33.3); Mean Corpuscular Volume 81.9 fL (83.0-100.0); Monocytes # 0.4 K/mcL (0.0-1.3); Monocytes % 4.4 %; Neutrophils # 7.6 K/mcL (1.6-8.9); Platelet Count 242 K/mcL (140-400); Red Blood Count 2.99 M/mcL (4.19-5.50); Red Cell Distribution Width 13.8 % (11.5-14.5); Segmented Neutrophils % 86.9 %
[2017-11-11] MEDS ORDERED: 0.9 % Sodium Chloride 1,000 ML IV SCH (05:45)
[2017-11-11] MEDS: *HR* Heparin 5,000 UNIT/ML VIAL SQ SCH (06:35)
[2017-11-11 06:37] LABS: Calcium 8.8 mg/dL (8.6-10.3); Magnesium 1.5 mg/dL (1.6-2.6)
[2017-11-11] MEDS: Insulin LISPRO 300 UNITS/3 ML VIAL SQ SCH ×2 (08:09→11:54)
--- NOTE | 2017-11-11 09:14 | Nephrology Progress Note ---
Date of Encounter: 11/11/17 Time of Encounter: 09:09 - Assessment and Plan (1) Acute kidney injury Current Visit: Yes Status: Acute Scr 2.51 GFR 26-worse from yesterday Patient states the IV Mg rider caused him to have much worse diarrhea yesterday which may have contributed to the worsening kidney function Patient is adamant he want to be discharged today When patient discharged will need close f/u with nephrology to make sure kidney function returns to normal (2) Anemia Current Visit: Yes Status: Acute per primary/GI team Qualifiers: Anemia type: unspecified type Qualified Code(s): D64.9 - Anemia, unspecified (3) Hypokalemia Current Visit: Yes Status: Resolved (4) Hypomagnesemia Current Visit: Yes Status: Acute Mg improved to 1.5 Patient states Mg rider caused him to have severe diarrhea, much worse than he normally has with his colitis Subjective Principal diagnosis: MCKENNA Interval history: Patient seen and examined. Pleasant but states he wants discharged today. Says he has been here for 8 days and he has bills and other things to take care of at home. Objective - Vital Signs Vital signs: Vital Signs Temp Pulse Resp BP Pulse Ox 11/11/17 07:23 99.6 F 116 20 104/63 93 11/11/17 05:19 99.9 F H 11/11/17 04:20 100.6 F H 128 18 130/61 92 11/11/17 00:02 99.6 F 86 16 169/75 95 11/10/17 19:53 98.4 F 100 18 103/62 94 11/10/17 16:35 97.5 F L 85 16 107/66 95 11/10/17 13:38 97.4 F L 90 16 143/75 95 11/10/17 11:37 97.4 F L 79 16 136/76 95 Intake and Output 11/10/17 11/11/17 11/11/17 23:59 07:59 15:59 Intake Total 120 / 120 Output Total 575 / 575 630 / 630 Balance -455 / -455 -630 / -630 Intake: Oral 120 / 120 Output: Urine 575 / 575 630 / 630 Other: Meal Breakfast Percent of Meal Consumed 0% Stool Size Moderate Stool Consistency liquid # Bowel Movements 3 Weight 51.1 kg Blood Glucose* 194 126 Patient Weight 11/11/17 23:59 Weight 51.1 kg - General Appearance General appearance: Present: cachectic EENT: Present: ATNC, mucous membranes moist, hearing intact, vision intact Neck: Present: supple Respiratory: Present: clear Cardiology: Present: no edema, normal S1, normal S2 Gastrointestinal: Present: no tenderness, no guarding Integumentary: Present: warm and dry Neurologic: Present: alert and oriented x3 Psychiatric: Present: mood/affect appropriate, cooperative - Lab 11/11/17 05:20 11/11/17 05:01 Most recent lab results Calcium 8.8 mg/dL (8.6-10.3) 11/11/17 05:01 Phosphorus 3.6 mg/dL (2.7-4.5) 11/10/17 04:09 Magnesium 1.5 mg/dL (1.6-2.6) L 11/11/17 05:01 Urine Creatinine 40 mg/dL 11/06/17 20:24 Urine Sodium 82.5 mEq/L 11/06/17 20:24 Urine Total Protein 11 mg/dL 11/06/17 20:24 - VTE Documentation of Mechanical Device: Intermittent pneumatic compression device Consult Discharge Plan - Plan Referrals: [facility] [Primary Care Provider] - (please call appt. discharge)
[2017-11-11] MEDS: Gabapentin 100 MG CAPSULE PO SCH ×2 (11:23→14:54)
[2017-11-11] MEDS: [UNRECOGNIZED DRUG - OTHER] PO SCH (11:24)
[2017-11-11] MEDS: BUDESONIDE 3 MG PO SCH (11:24)
[2017-11-11] MEDS: 0.9 % Sodium Chloride 1,000 ML IVC SCH (11:41)
[2017-11-11] MEDS: GLUCOCIL PO SCH (12:02)
[2017-11-11 15:13] VITALS: BP 108/62
--- NOTE | 2017-11-11 15:18 | Discharge Summary ---
Date of Encounter: 11/11/17 Time of Encounter: 11:00 - Discharge Diagnosis (1) Acute renal failure (ARF) Priority: Primary Status: Acute Qualifiers: Acute renal failure type: unspecified Qualified Code(s): N17.9 - Acute kidney failure, unspecified (2) Anemia Priority: Primary Status: Acute Qualifiers: Anemia type: iron deficiency Qualified Code(s): D50.9 - Iron deficiency anemia, unspecified (3) Diarrhea Priority: Secondary Status: Acute Qualifiers: Diarrhea type: unspecified type Qualified Code(s): R19.7 - Diarrhea, unspecified (4) Hypertension Priority: Secondary Status: Acute Qualifiers: Hypertension type: essential hypertension Qualified Code(s): I10 - Essential (primary) hypertension (5) Diabetes mellitus Priority: Secondary Status: Chronic (6) PAD (peripheral artery disease) Priority: Secondary Status: Chronic - Discharge Medications Home Medications: Cilostazol 100 mg PO BID 01/18/17 [History] Clopidogrel [Plavix] 75 mg PO DAILY 01/18/17 [History] Metoprolol [Lopressor] 25 mg PO BID 01/18/17 [History] Simvastatin [Zocor] 40 mg PO HS 01/18/17 [History] Budesonide [Entocort EC] 9 mg PO DAILY 11/04/17 [History] Dextrose [Glucose] 16 gm PO AD PRN 11/04/17 [History] Gabapentin [Neurontin] 600 mg PO QID 11/04/17 [History] Glucocil 2 cap PO BIDWM 11/04/17 [History] Loperamide HCl [Anti-Diarrheal] 2 mg PO PER PKG DI PRN 11/04/17 [History] Potassium Chloride Elixir [Potassium Chloride] 20 meq PO DAILY 11/04/17 [History ] glipiZIDE [Glucotrol] 5 mg PO 0800 11/04/17 [History] Ferrous Sulfate 325 mg PO DAILY@0800 tablet 11/11/17 [Rx] Potassium Chloride 40 meq PO BID tab.er.prt 11/11/17 [Rx] Allergies/Adverse Reactions: 3 Allergy/AdvReac Type Severity Reaction Status Date / Time metformin AdvReac Diarrhea Verified 11/04/17 13:14 Procedures/tests Complete & Pending: Procedures Performed prior 72 hours Category Date Time Status ECG 12 lead ECG [ECG] Stat Y 11/11/17 04:59 Completed Date of admission: 11/04/17 17:19 [facility] care physician: [facility] Consults: 11/04/17 17:41 Consult to Nephrology [CONS] Routine Consulting Provider: Kidney Lauryn/CUCA/LISA/SCOTT Reason for Consult: ARF Call Completed: No 11/07/17 13:51 Consult to Gastroenterology [CONS] Routine Consulting Provider: Gastroenterology Lauryn Reason for Consult: positive stool occult Call Completed: Yes - Patient Status Disposition: Home, Self-Care Condition: Good - Discharge Instructions Follow Up With: [facility] [Primary Care Provider] - (please call appt. discharge) Hospital course: Mr. Martinez is a 62 year old male - Time Spent with Patient Total time spent providing and/or coordinating discharge services: - Constitutional Vitals: Temp Pulse Resp BP Pulse Ox 98.2 F 87 14 108/62 98 11/11/17 15:10 11/11/17 15:10 11/11/17 15:10 11/11/17 15:10 11/11/17 15:10 General appearance: Present: A&O X 3, no acute distress - VTE Documentation of Mechanical Device: Intermittent pneumatic compression device
--- NOTE | 2017-11-14 17:56 | Electrocardiograph Report ---
[place] [id number] Test Date: 2017-11-11 Pat Name: Aleksandr Martinez Department: 112 Room: 2A Gender: M Segment Block Layer: : 1955 Requested By: Pramod Stevenson Order Number: [id number] Reading MD: April Ibanez Measurements Intervals [place] Rate: 126 P: 66 [place]: 157 QRS: -16 QRSD: 74 T: 42 QT: 302 QTc: 377 Interpretive Statements SINUS TACHYCARDIA MINIMAL ST DEPRESSION ABNORMAL RHYTHM ECG Electronically Signed On 11-14-2017 17:54:39 EST by April Ibanez
== END 2017-11-11 17:34 | disposition home or self-care (01) | DRG 683 ==
LOC: EMEROO 12:47 → 2ANU 12:47 → SUATTDRO 17:19 → 2ANU 17:32
PROVIDERS: ADMIT Internal Medicine; ATTEND Hospitalist
PROC: ENDOEBX (2017-11-08 14:30)
PROC: ENDOCCB (2017-11-10 14:30)

== ENCOUNTER 2020-04-24 06:04 | Inpatient (IN) ==
[2020-04-24] MEDS ORDERED: CeFAZolin Syr 2,000MG/20 ML 2,000 MG/20 ML SYRINGE IVPB ONE (06:15)
[2020-04-24] MEDS ORDERED: Ringers Solution, Lactated 1,000 ML IVC SCH (06:15)
[2020-04-24] MEDS ORDERED: *HR* HYDROmorphone PF 0.5 MG/0.5 ML SYRINGE IVP PRN (07:02)
[2020-04-24] MEDS ORDERED: Ondansetron 4 MG/2 ML VIAL IVP ONE (07:02)
[2020-04-24] MEDS ORDERED: *HR* OxyCODONE Immed Rel 5 MG TABLET PO PRN (07:02)
[2020-04-24] MEDS ORDERED: Lidocaine -MPF 2% 2 ML VIAL ONE (07:13)
[2020-04-24] MEDS ORDERED: *HR* Midazolam HCl 2 MG/2 ML VIAL ONE (07:13)
[2020-04-24] MEDS ORDERED: *HR* Propofol 200 MG/20 ML VIAL IVP ONE (07:13)
[2020-04-24] MEDS ORDERED: *HR* FentaNYL (PF) 100 MCG/2 ML VIAL ONE (07:13)
[2020-04-24] MEDS ORDERED: *HR* Succinylcholine 200 MG/10 ML VIAL IVP ONE (07:13)
[2020-04-24] MEDS ORDERED: *HR* Rocuronium Bromide 50 MG/5 ML VIAL ONE (07:13)
[2020-04-24] MEDS: Ringers Solution, Lactated 1,000 ML IVC SCH (07:16)
[2020-04-24] MEDS ORDERED: *HR* Phenylephrine 10 MG/ML VIAL ONE (08:42)
[2020-04-24] MEDS ORDERED: *HR* Labetalol 20 MG/4 ML SYRINGE IVP ONE (09:24)
[2020-04-24] MEDS ORDERED: Ondansetron 4 MG/2 ML VIAL ONE (10:55)
[2020-04-24] MEDS ORDERED: Neostigmine Methylsulfate 3 MG/3 ML SYRINGE ONE (10:56)
[2020-04-24] MEDS ORDERED: *HR* HYDROMORPHONE 2 MG/ML VIAL ONE (10:57)
[2020-04-24] MEDS ORDERED: Naloxone 0.4 MG/ML INJ IVP PRN (11:04)
[2020-04-24] MEDS ORDERED: Acetaminophen IV 1,000 MG/100 ML BAG IVPB SCH (12:00)
[2020-04-24] MEDS: 0.9 % Sodium Chloride 1,000 ML IVC SCH ×2 (13:32→23:43)
[2020-04-24] MEDS ORDERED: Ondansetron 4 MG/2 ML VIAL IVP PRN (15:32)
[2020-04-24] MEDS: Acetaminophen IV 1,000 MG/100 ML BAG IVPB SCH ×2 (16:18→20:15)
[2020-04-24] MEDS: CeFAZolin 2 GM/120 ML BAG IVPB SCH ×2 (16:22→23:44)
[2020-04-24] MEDS ORDERED: hydrALAZINE 25 MG TABLET PO ONE (21:00)
[2020-04-25] MEDS: Acetaminophen IV 1,000 MG/100 ML BAG IVPB SCH ×2 (01:41→09:03)
[2020-04-25] MEDS: Ringers Solution, Lactated 1,000 ML IVC SCH (06:32)
[2020-04-25 06:49] LABS: Basophils % 0.3 %; Eosinophils # 0.1 K/mcL (0.0-0.6); Hematocrit 29.6 % (37.5-50.1); Hemoglobin 9.6 g/dL (12.9-16.9); Immature Granulocytes % 0.2 % (0-4); Lymphocytes # 0.4 K/mcL (0.6-4.6); Lymphocytes % 7.2 %; Mean Corpuscular HGB Conc 32.4 g/dL (31.6-35.5); Mean Corpuscular Hemoglobin 27.7 pg (28.0-33.3); Mean Corpuscular Volume 85.5 fL (83.0-100.0); Mean Platelet Volume 9.4 fL (9.4-12.4); Monocytes # 0.3 K/mcL (0.0-1.3); Monocytes % 4.8 %; Neutrophils # 5.1 K/mcL (1.6-8.9); Platelet Count 155 K/mcL (140-400); Red Blood Count 3.46 M/mcL (4.19-5.50); Red Cell Distribution Width 14.3 % (11.5-14.5); Segmented Neutrophils % 86.5 %; White Blood Count 5.9 K/mcL (4.3-11.1)
[2020-04-25 07:07] LABS: INR 1.3; Prothrombin Time 14.7 Seconds (9.4-12.1)
[2020-04-25 07:09] LABS: Calcium 7.3 mg/dL (8.6-10.3)
[2020-04-25 10:08] VITALS: BP 173/73
== END 2020-04-25 11:06 | disposition home or self-care (01) | DRG 661 ==
LOC: SAMDAY 06:04 → 3ANU 13:11 → INTOOBSV 13:11
PROVIDERS: ADMIT Urology; ATTEND Urology

== ENCOUNTER 2021-12-08 09:43 | Inpatient (IN) ==
[2021-12-08] MEDS ORDERED: CeFAZolin Syr 2,000MG/20 ML 2,000 MG/20 ML SYRINGE IVPB ONE (10:01)
[2021-12-08] MEDS ORDERED: *HR* FentaNYL (PF) 100 MCG/2 ML VIAL IVP PRN (10:03)
[2021-12-08] MEDS ORDERED: Ringers Solution, Lactated 1,000 ML IVC SCH (10:15)
[2021-12-08] MEDS ORDERED: niCARdipine 0 MG/0 ML MLS IVC ONE (10:28)
[2021-12-08] MEDS ORDERED: *HR* Midazolam HCl 2 MG/2 ML VIAL ONE (11:50)
[2021-12-08] MEDS ORDERED: Lidocaine -MPF 2% 5 ML VIAL ONE (11:50)
[2021-12-08] MEDS ORDERED: *HR* FentaNYL (PF) 100 MCG/2 ML VIAL ONE (11:50)
[2021-12-08] MEDS ORDERED: *HR* Succinylcholine 200 MG/10 ML VIAL IVP ONE (11:50)
[2021-12-08] MEDS ORDERED: *HR* Propofol 200 MG/20 ML VIAL IVP ONE (11:50)
[2021-12-08] MEDS ORDERED: Lidocaine -MPF 4% 5 ML AMPUL ONE (11:50)
[2021-12-08] MEDS ORDERED: *HR* Rocuronium Bromide 50 MG/5 ML VIAL ONE (11:50)
[2021-12-08] MEDS ORDERED: Heparin 1,000 UNITS/500 mL 1,000 ML ONE (11:53)
[2021-12-08] MEDS ORDERED: Protamine Sulfate 50 MG/5 ML VIAL IVP ONE (11:53)
[2021-12-08] MEDS ORDERED: Ondansetron 4 MG/2 ML VIAL ONE (11:58)
[2021-12-08] MEDS ORDERED: Heparin 1,000 UNITS/500 mL 0 ML ONE (11:59)
[2021-12-08] MEDS ORDERED: *HR* Phenylephrine 10 MG/ML VIAL ONE (12:00)
[2021-12-08] MEDS ORDERED: *HR* Remifentanil 2 MG VIAL IVP ONE (12:03)
[2021-12-08] MEDS ORDERED: EPHEDrine 50 MG/ML VIAL ONE (12:09)
[2021-12-08] MEDS ORDERED: ceFAZolin 1,000 MG, Sodium Chloride IRRigation 1,000 ML IR ONE (12:40)
[2021-12-08] MEDS ORDERED: *HR* Heparin 5,000 UNIT/ML VIAL ONE ×2 (14:06→15:20)
[2021-12-08] MEDS ORDERED: *HR* Vasopressin 20 UNIT/ML VIAL ONE (14:15)
[2021-12-08] MEDS ORDERED: Ondansetron 4 MG/2 ML VIAL IVP PRN (18:56)
[2021-12-08] MEDS ORDERED: *HR* HYDROcodone/Acet 5/325 mg TABLET PO PRN (18:56)
[2021-12-08] MEDS ORDERED: Naloxone 0.4 MG/ML INJ IVP PRN (18:56)
[2021-12-08] MEDS ORDERED: *HR* Labetalol 20 MG/4 ML SYRINGE IVP PRN (18:56)
[2021-12-08] MEDS ORDERED: Acetaminophen 325 MG TABLET PO PRN (18:56)
[2021-12-08] MEDS: hydrALAZINE 25 MG TABLET PO SCH (19:56)
[2021-12-08] MEDS: NIFEdipine XL (24 HR) 60 MG TAB.ER.24 PO SCH (19:56)
[2021-12-08] MEDS: carvediloL 25 MG TABLET PO SCH (19:57)
[2021-12-08] MEDS: ceFAZolin 3,000 MG in 0.9 % Sodium Chloride 100 ML IVPB SCH (23:26)
[2021-12-09] MEDS ORDERED: CeFAZolin Syr 3,000MG/30 ML 3,000 MG/30 ML SYRINGE IVPB SCH
[2021-12-09 03:56] LABS: Hematocrit 22.7 % (37.5-50.1); Hemoglobin 7.8 g/dL (12.9-16.9); Immature Granulocytes % 0.3 % (0-4); Lymphocytes # 0.4 K/mcL (0.6-4.6); Lymphocytes % 6.1 %; Mean Corpuscular HGB Conc 34.4 g/dL (31.6-35.5); Mean Corpuscular Hemoglobin 29.1 pg (28.0-33.3); Mean Corpuscular Volume 84.7 fL (83.0-100.0); Mean Platelet Volume 9.6 fL (9.4-12.4); Monocytes # 0.2 K/mcL (0.0-1.3); Monocytes % 2.6 %; Neutrophils # 5.9 K/mcL (1.6-8.9); Platelet Count 190 K/mcL (140-400); Red Blood Count 2.68 M/mcL (4.19-5.50); Red Cell Distribution Width 15.1 % (11.5-14.5); White Blood Count 6.5 K/mcL (4.3-11.1)
[2021-12-09 04:21] LABS: Calcium 8.1 mg/dL (8.6-10.3); Potassium 4.3 mEq/L (3.5-5.1)
[2021-12-09] MEDS: ceFAZolin 3,000 MG in 0.9 % Sodium Chloride 100 ML IVPB SCH ×2 (07:15→15:10)
[2021-12-09] MEDS: NIFEdipine XL (24 HR) 60 MG TAB.ER.24 PO SCH (08:00)
[2021-12-09] MEDS: carvediloL 25 MG TABLET PO SCH (08:00)
[2021-12-09] MEDS: hydrALAZINE 25 MG TABLET PO SCH ×2 (08:01→15:13)
[2021-12-09 13:48] VITALS: BP 143/51; PULSE 66; O2SAT 99
[2021-12-09 15:22] VITALS: TEMP 97.5
== END 2021-12-09 16:08 | disposition home or self-care (01) | DRG 38 ==
LOC: SAMDAY 09:43 → ICNU 18:22
PROVIDERS: ADMIT Surgery Vascular Surgery; ATTEND Surgery Vascular Surgery